=== PATIENT | male | born 2000 | race Caucasian/White ===

== ENCOUNTER 2020-02-08 10:49 | Emergency (ER) | payer BC, SELFPAY ==
[2020-02-08 11:04] VITALS: BP 130/70; PULSE 91; RESP 20; TEMP 36.8; O2SAT 99
--- NOTE | 2020-02-08 11:26 | ED.URI ---
HPI - URI/Sore Throat General Chief Complaint: Upper Respiratory Infection Stated Complaint: Fever Time Seen by Provider: 02/08/20 11:17 Source: patient, family and RN notes reviewed Mode of arrival: ambulatory Limitations: no limitations History of Present Illness HPI Narrative: Patient presents today with a 2-day history of productive cough, chills, body aches, fever up to 101, congestion, rhinorrhea, and intermittent headache. Denies shortness of breath. No history of asthma or COPD. He is a non-smoker. He has been taking cold and flu medicine as well as ibuprofen with mild relief. Denies any known recent contact with COVID positive patient. No recent travel. MD elicited complaint: fever and cough Related Data Home Medications Medication Instructions Recorded Confirmed No Home Medications 02/08/20 02/08/20 Allergies Allergy/AdvReac Type Severity Reaction Status Date / Time No Known Allergies Allergy Verified 02/08/20 11:07 Review of Systems Review of Systems: Narrative: CONSTITUTIONAL: Denies sweats.+ Body aches, fever, chills EYES: Denies visual changes, redness, or discharge. ENT: Denies sore throat, or otalgia.+ Congestion, rhinorrhea CARDIOVASCULAR: Denies chest pain, palpitations, or edema. RESPIRATORY: Denies dyspnea.+ Cough GASTROINTESTINAL: Denies abdominal pain, nausea, vomiting, or diarrhea. GENITOURINARY: Denies dysuria or hematuria. SKIN: Denies rash, itching, or wounds. MUSCULOSKELETAL: Denies back pain, joint pain, or myalgia. NEUROLOGIC: Denies numbness, tingling, or weakness.+ Headache PSYCH: Denies depression or anxiety. PMFSH Social History Social History Gender identity (if verbalized by the patient): Female Comments At time of signature, I have reviewed and agree with nursing past medical, surgical, social and family history unless otherwise noted. Please see nursing chart for further information. There is no relevant family history pertinent to the presenting complaint Exam Narrative: Exam Narrative: GENERAL: Mildly ill-appearing, well-nourished, and in no acute distress. HEAD: Normocephalic, atraumatic. EYES: EOMI. No redness or drainage. Conjunctivae normal. ENT: Mucous membranes pink and moist. Nares congested with rhinorrhea. TMs normal bilaterally. Throat normal. Uvula midline. NECK: Normal AROM. Supple. No lymphadenopathy. CHEST: No respiratory distress. Clear to auscultation. HEART: Regular rate and rhythm. No murmur appreciated. Normal peripheral pulses. EXTREMITIES: Normal range of motion. No edema. SKIN: Warm, dry, no rash. NEURO: No focal deficits. Alert and oriented x3. Gait steady. PSYCH: Normal affect. No signs of depression or anxiety. Course Vital Signs Vital signs: Vital Signs Temperature 98.3 F 02/08/20 11:04 Pulse Rate 91 02/08/20 11:04 Respiratory Rate 20 02/08/20 11:04 Blood Pressure 130/70 02/08/20 11:04 Pulse Oximetry 99 02/08/20 11:04 Temperature 98.3 F 02/08/20 11:04 Pulse Rate 91 02/08/20 11:04 Respiratory Rate 20 02/08/20 11:04 Blood Pressure 130/70 02/08/20 11:04 Pulse Oximetry 99 02/08/20 11:04 Reviewed. Pt has been instructed to follow up with his PCP regarding his elevated blood pressure today. MDM - URI/Sore Throat MDM Narrative Medical decision making narrative: Differential Diagnosis Differential diagnosis: Likely upper respiratory infection, sinusitis, viral infection, bronchitis and influenza Lab Data Attestation: I reviewed the patient's lab results. Labs: Influenza A Screen Negative Reference Range: Negative Influenza B Screen Negative Reference Range: Negative Critical Care Time Critical Care Time Critical Care Time: No Discharge Plan Discharge Clinical Impression: Upper respiratory infection Qualifiers: URI type: unspecified URI Qualified Code(s): J06.9 - Acute upper respiratory infection, unspecified Patient Disposi
== END 2020-02-08 11:34 | disposition home or self-care (01) ==
PROVIDERS: Emergency Provider Nurse Practitioner; PCP Pediatrics
DX: J06.9 Acute upper respiratory infection, unspecified (principal)
CPT/HCPCS: 87804; 99213; G0463

== ENCOUNTER 2020-10-12 10:54 | Emergency (ER) | payer BC, SELFPAY ==
[2020-10-12 11:02] VITALS: BP 126/83; PULSE 106; RESP 20; TEMP 37.8; O2SAT 97
--- NOTE | 2020-10-12 11:21 | ED.URI ---
HPI - URI/Sore Throat General Chief Complaint: Upper Respiratory Infection Stated Complaint: upper respiratory infection Source: patient Mode of arrival: ambulatory Limitations: no limitations History of Present Illness HPI Narrative: Patient is a 20-year-old male who presents complaining of cough, rhinorrhea, body aches, mild nausea and headache starting this a.m. 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 He reports a history of kidney disease from when he was a child, but is unsure what it entails. He is febrile upon arrival, denies taking any [id number] medications at this time. He denies chest pain or shortness of breath. MD elicited complaint: fever and cough Related Data Home Medications Medication Instructions Recorded Confirmed No Home Medications 02/08/20 02/08/20 Allergies Allergy/AdvReac Type Severity Reaction Status Date / Time No Known Allergies Allergy Verified 02/08/20 11:07 Review of Systems Review of Systems: Narrative: CONSTITUTIONAL: Reports fever and body aches EYES: Denies visual changes, reports redness and discharge. ENT: Reports rhinorrhea, denies congestion, sore throat, or otalgia. CARDIOVASCULAR: Denies chest pain, palpitations, or edema. RESPIRATORY: Reports cough, denies dyspnea. GASTROINTESTINAL: Reports mild nausea GENITOURINARY: Denies dysuria or hematuria. SKIN: Denies rash or itching. MUSCULOSKELETAL: Denies back pain, joint pain, or myalgia. NEUROLOGIC: Denies headache, numbness, dizziness, or weakness. PSYCHIATRIC: Denies anxiety or depression. [facility] Past Medical History Medical History (Updated 10/12/20 @ 11:24 by RENO Antonio) Abnormal biopsy of kidney Kidney disease Social History Social History (Updated 10/12/20 @ 11:25 by RENO Antonio) Smoking status: Never smoker Alcohol intake: never Substance use: never Gender identity (if verbalized by the patient): Female Exam Narrative: Exam Narrative: GENERAL: Well-appearing, well-nourished, and in no acute distress. HEAD: Normocephalic, atraumatic. EYES: Sclera injected bilateral eyes, clear drainage noted, conjunctiva erythematous ENT: Mucous membranes pink and moist. Positive rhinorrhea. Throat normal. Uvula midline. NECK: AROM. Supple. No lymphadenopathy. CHEST: No respiratory distress. GI: Soft, nontender without rebound, or guarding. No distention. EXTREMITIES: Normal range of motion. No edema. SKIN: Warm, dry, no rash. NEURO: No focal deficits. Alert and oriented x3. Gait steady. PSYCH: Normal affect. No signs of depression or anxiety. Course Vital Signs Vital signs: Vital Signs Temperature 37.8 C H 10/12/20 11:02 Pulse Rate 106 H 10/12/20 11:02 Respiratory Rate 20 10/12/20 11:02 Blood Pressure 126/83 10/12/20 11:02 Pulse Oximetry 97 10/12/20 11:02 Temperature 37.8 C H 10/12/20 11:02 Pulse Rate 106 H 10/12/20 11:02 Respiratory Rate 20 10/12/20 11:02 Blood Pressure 126/83 10/12/20 11:02 Pulse Oximetry 97 10/12/20 11:02 Reviewed. Patient has been instructed to follow-up with his PCP regarding his blood pressure. MDM - URI/Sore Throat MDM Narrative Medical decision making narrative: Patient's influenza is negative. Discussed with patient Covid testing. Patient requesting Covid testing at this time. Discussed quarantine. Discussed that if he has chest pain or shortness of breath, he should go to the emergency department for further evaluation. Patient is stable for discharge at this time with follow-up as discussed. Differential Diagnosis Differential diagnosis: Likely upper respiratory infection, viral infection, bronchitis, influenza and pharyngitis Lab Data Labs: Influenza A Screen Negative Reference Range: Negative Influenza B Screen Negative
== END 2020-10-12 11:28 | disposition home or self-care (01) ==
PROVIDERS: Emergency Provider Nurse Practitioner
DX: J06.9 Acute upper respiratory infection, unspecified (principal); Z20.828 Contact with and (suspected) exposure to other viral communicable diseases
CPT/HCPCS: 87804; 99213; G0463

== ENCOUNTER 2020-10-15 12:52 | Outpatient (NON) | payer BC, SELFPAY ==
[2020-10-16 01:18] LABS: SARS-CoV-2 RNA PCR Positive
== END 2020-10-15 12:53 ==
LOC: ANHCOVIDDT 12:54
PROVIDERS: Visit Provider Nurse Practitioner
DX: U07.1 COVID-19 (principal)
CPT/HCPCS: 87635; C9803; U0003

== ENCOUNTER 2021-07-31 11:08 | Emergency (ER) | payer BC, SELFPAY ==
[2021-07-31 11:17] VITALS: BP 145/89; PULSE 99; RESP 18; TEMP 36.8; O2SAT 97
--- NOTE | 2021-07-31 11:44 | ED.GENADULT ---
HPI - General Adult General Chief complaint: Upper Respiratory Infection Stated complaint: Sore Throat,Congestion Source: patient Mode of arrival: ambulatory Limitations: no limitations History of Present Illness HPI narrative: Patient is a 21-year-old male who presents to the [facility] via POV for evaluation of a sore throat that began yesterday. Additionally, patient reports throat pain is intermittent and sharp in nature. Denies associated signs and symptoms. Throat pain is alleviated with cough drops and worsens with swallowing. No relief with ibuprofen. Denies known exposure to sick contacts. Patient reports he is fully vaccinated against Covid. Related Data Allergies Allergy/AdvReac Type Severity Reaction Status Date / Time No Known Allergies Allergy Verified 07/31/21 11:15 Review of Systems Review of Systems: Pertinent negatives: fever, sweats, chills, change in appetite, fatigue, skin color changes, headache, nasal congestion/discharge, dizziness, lymphadenopathy, sinus problems, ear pain/drainage, drooling, difficulty swallowing, chest pain, heart murmurs, heart palpitations, shortness of breath, wheezing, cyanosis, hemoptysis, hoarseness, orthopnea, pleuritic pain, nausea, vomiting, diarrhea, and myalgias. [facility] Past Medical History Medical History Abnormal biopsy of kidney Kidney disease Social History Social History Smoking status: Never smoker Alcohol intake: never Substance use: never Gender identity (if verbalized by the patient): Female Comments I have reviewed and agree with the patient's past medical, surgical, social, and family hx as documented by the RN. There is no relevant family history pertinent to the presenting complaint. Exam Narrative: GENERAL: Well-appearing, well-nourished, and in no acute distress. HEAD: Normocephalic, atraumatic. No sinus tenderness or facial swelling appreciated. EYES: PERRLA and EOMI. No evidence of erythema, swelling, or drainage. ENT: Bilateral external ears and ear canals normal. Bilateral TMs are normal.No TM perforation. Nares clear, no rhinorrhea or epistaxis. Bilateral turbinates without erythema/ swelling. Mucous membranes moist and pink. Uvula is midline without erythema and swelling. No evidence of petechial rash, cobblestoning, lesions, ulcers, erythema, swelling, exudates, peritonsillar abscess, tenting, or drooling. Breath odor and voice normal. NECK: Supple. No Lymphadenopathy or nuchal rigidity appreciated. CHEST: Bilateral lung negron are clear to auscultation. No respiratory distress. No evidence of cough or pleuritic cp upon examination. HEART: Regular rate and rhythm. No murmur, gallop, or rub heard. EXTREMITIES: Normal range of motion. No edema. SKIN: Warm, dry, no rash. NEURO: No focal deficits. Alert and oriented x3. Course Vital Signs Vital signs: Vital Signs Temperature 98.2 F 07/31/21 11:17 Pulse Rate 99 07/31/21 11:17 Respiratory Rate 18 07/31/21 11:17 Blood Pressure 145/89 H 07/31/21 11:17 Pulse Oximetry 97 07/31/21 11:17 Temperature 98.2 F 07/31/21 11:17 Pulse Rate 99 07/31/21 11:17 Respiratory Rate 18 07/31/21 11:17 Blood Pressure 145/89 H 07/31/21 11:17 Pulse Oximetry 97 07/31/21 11:17 Due to an elevated blood pressure, I had a detailed discussion with the patient and/or guardian regarding the need for follow-up with their primary care provider within the next 3-4 days. Patient verbalized understanding and agreed. Medical Decision Making Vital Signs Vital Signs: Vital Signs Temperature 98.2 F 07/31/21 11:17 Pulse Rate 99 07/31/21 11:17 Respiratory Rate 18 07/31/21 11:17 Blood Pressure 145/89 H 07/31/21 11:17 Pulse Oximetry 97 07/31/21 11:17 Temperature 98.2 F 07/31/21 11:17 Pulse Rate 99 07/31/21 11:17 Respiratory Rate 18
== END 2021-07-31 11:53 | disposition home or self-care (01) ==
PROVIDERS: Emergency Provider Nurse Practitioner Family
DX: J02.9 Acute pharyngitis, unspecified (principal)
CPT/HCPCS: 87081; 87880; 99213; G0463

== ENCOUNTER 2021-10-15 18:39 | Emergency (ER) | payer BC, SELFPAY ==
[2021-10-15 18:49] VITALS: BP 171/95; PULSE 95; RESP 18; TEMP 36.8; O2SAT 99
--- NOTE | 2021-10-15 19:07 | ED.EAR ---
HPI - Ear Problem General Chief complaint: Ear Stated complaint: bilateral ear pain/congestion Time Seen by Provider: 10/15/21 18:58 Source: patient and RN notes reviewed Mode of arrival: ambulatory Limitations: no limitations History of Present Illness HPI Narrative: Patient presents today with a 2-day history of bilateral ear pain. Reports some clear drainage bilaterally as well. Denies fever, sore throat, or any additional symptoms. Hearing normal. Currently rates pain 5/10 and has been taking ibuprofen with mild relief. No recent antibiotic use. He has been vaccinated against COVID-19. MD Complaint: ear pain Related Data Allergies Allergy/AdvReac Type Severity Reaction Status Date / Time No Known Allergies Allergy Verified 10/15/21 18:43 Review of Systems Review of Systems: CONSTITUTIONAL: Denies body aches, fever, chills, or sweats. EYES: Denies visual changes, redness, or discharge. ENT: Denies rhinorrhea, congestion, sore throat. + Ear pain CARDIOVASCULAR: Denies chest pain, palpitations, or edema. RESPIRATORY: Denies cough or dyspnea. GASTROINTESTINAL: Denies abdominal pain, nausea, vomiting, or diarrhea. GENITOURINARY: Denies dysuria or hematuria. SKIN: Denies rash, itching, or wounds. MUSCULOSKELETAL: Denies back pain, joint pain, or myalgia. NEUROLOGIC: Denies headache, numbness, tingling, or weakness. PSYCH: Denies depression or anxiety. PMFSH Past Medical History Medical History (Reviewed 10/15/21 @ 19:09 by Jamilah Lima, [facility], ) Abnormal biopsy of kidney Kidney disease Social History Social History (Reviewed 10/15/21 @ 19:09 by Jamilah Lima, [facility], ) Smoking status: Never smoker Alcohol intake: never Substance use: never Gender identity (if verbalized by the patient): Female Comments At time of signature, I have reviewed and agree with nursing past medical, surgical, social and family history unless otherwise noted. Please see nursing chart for further information. There is no relevant family history pertinent to the presenting complaint Exam Narrative: GENERAL: Well-appearing, well-nourished, and in no acute distress. HEAD: Normocephalic, atraumatic. EYES: EOMI. No redness or drainage. Conjunctivae normal. ENT: Mucous membranes pink and moist. Nares clear. No rhinorrhea. Bilateral injected TMs, right greater than left. Throat normal. Uvula midline. NECK: Normal AROM. Supple. No lymphadenopathy. CHEST: No respiratory distress. EXTREMITIES: Normal range of motion. No edema. SKIN: Warm, dry, no rash. Capillary refill normal. Normal skin turgor. NEURO: No focal deficits. Alert and oriented x3. Gait steady. PSYCH: Normal affect. No signs of depression or anxiety. Course Vital Signs Vital signs: Vital Signs Temperature 98.3 F 10/15/21 18:49 Pulse Rate 95 10/15/21 18:49 Respiratory Rate 18 10/15/21 18:49 Blood Pressure 171/95 H 10/15/21 18:49 Pulse Oximetry 99 10/15/21 18:49 Temperature 98.3 F 10/15/21 18:49 Pulse Rate 95 10/15/21 18:49 Respiratory Rate 18 10/15/21 18:49 Blood Pressure 171/95 H 10/15/21 18:49 Pulse Oximetry 99 10/15/21 18:49 Reviewed. Pt has been instructed to follow up with his PCP regarding his elevated blood pressure today. Medical Decision Making Differential Diagnosis Differential Diagnosis: Otitis media, otitis externa, ruptured TM, serous otitis, eustachian tube dysfunction, cerumen impaction Vital Signs Vital Signs: Vital Signs Temperature 98.3 F 10/15/21 18:49 Pulse Rate 95 10/15/21 18:49 Respiratory Rate 18 10/15/21 18:49 Blood Pressure 171/95 H 10/15/21 18:49 Pulse Oximetry 99 10/15/21 18:49 Temperature 98.3 F 10/15/21 18:49 Pulse Rate 95 10/15/21 18:49 Respiratory Rate 18 10/15/21 18:49 Blood Pressure 171/95 H 10/15/21 18:49 Pulse Oximetry 99 10/15/21 18:49 Critical Care Time Critical Care Time Critical Care Time: No Discharge Plan Discharge
== END 2021-10-15 19:22 | disposition home or self-care (01) ==
PROVIDERS: Emergency Provider Nurse Practitioner
DX: H66.003 Acute suppurative otitis media without spontaneous rupture of ear drum, bilateral (principal)
CPT/HCPCS: 99213; G0463

== ENCOUNTER 2022-03-10 12:04 | Emergency (ER) | payer BC, SELFPAY ==
[2022-03-10 12:37] VITALS: BP 152/105; PULSE 101; RESP 18; TEMP 36.6; O2SAT 98
--- NOTE | 2022-03-10 12:41 | ED.URI ---
HPI - URI/Sore Throat General Chief Complaint: Upper Respiratory Infection Stated Complaint: nasal congestion,cough,bodyache Time Seen by Provider: 03/10/22 12:41 Source: patient and RN notes reviewed Mode of arrival: ambulatory Limitations: no limitations History of Present Illness HPI Narrative: 22-year-old male presents with concern for 5-day history of cough, nasal congestion, rhinorrhea, body aches, sneezing, fever. Reports cough became more persistent today. He reports he has not taken Mucinex Tylenol. He denies any known sick contacts. Reports has been vaccinated for COVID. He denies shortness of breath, nausea, vomiting, diarrhea. MD elicited complaint: cough and nasal congestion Related Data Allergies Allergy/AdvReac Type Severity Reaction Status Date / Time No Known Allergies Allergy Verified 03/10/22 13:00 Review of Systems Review of Systems: CONSTITUTIONAL: Denies malaise, chills, sweats. Reports fever. EYES: Denies visual changes, redness, or discharge. ENT: Reports rhinorrhea, congestion, sore throat. Denies sinus pain, otalgia CARDIOVASCULAR: Denies chest pain, palpitations, or edema. RESPIRATORY: Reports cough. Denies dyspnea. GASTROINTESTINAL: Denies abdominal pain, nausea, vomiting, diarrhea SKIN: Denies rash or itching. MUSCULOSKELETAL: Reports myalgia. NEUROLOGIC: Denies headache. All systems reviewed & are unremarkable except as noted in HPI and below PMFSH Past Medical History Medical History Abnormal biopsy of kidney Kidney disease Social History Social History Smoking status: Never smoker Alcohol intake: never Substance use: never Gender identity (if verbalized by the patient): Female Comments At time of signature, agree with nursing past medical, surgical, social and family history. There is no relevant family history pertinent to the presenting complaint Exam Narrative: GENERAL: Nontoxic appearing and in no acute distress. HEAD: Normocephalic EYES: PERRLA, conjunctivae clear ENT: Nares clear, turbinates edematous and erythematous, clear discharge. Mucous membranes moist. TM pearly jolley with dull light reflex bilaterally; no tragal tenderness. Oropharynx not erythematous without lesions. Tonsils not enlarged and without exudate, no drooling, no hoarseness, no trismus, uvula midline. NECK: Supple. No lymphadenopathy CHEST: Clear to auscultation, breath sounds equal. No wheezing, rhonchi, rales, or stridor. No respiratory distress, speaks in full sentences. HEART: Regular rate and rhythm. No murmur heard. SKIN: Warm, dry, no rash. NEURO: Alert and oriented x3. PSYCH: Normal mood and affect Course Course Emergency Course: Patient is aware of diagnosis, understands and agrees to treatment plan. Anticipatory guidance given. Patient agrees to follow-up as directed and is aware of reasons to seek care at the emergency department. Portions of this record may have been created with voice recognition software Level of Care: Express Care Visit Vital Signs Vital signs: Vital Signs Temperature 97.8 F 03/10/22 12:37 Pulse Rate 101 H 03/10/22 12:37 Respiratory Rate 18 03/10/22 12:37 Blood Pressure 152/105 H 03/10/22 12:37 Pulse Oximetry 98 03/10/22 12:37 Temperature 97.8 F 03/10/22 12:37 Pulse Rate 101 H 03/10/22 12:37 Respiratory Rate 18 03/10/22 12:37 Blood Pressure 152/105 H 03/10/22 12:37 Pulse Oximetry 98 03/10/22 12:37 Reviewed. Pt has been instructed to follow up with his primary care provider within the next week regarding his elevated blood pressure today. MDM - URI/Sore Throat MDM Narrative Medical decision making narrative: Differential diagnosis considered: Mahan virus, strep pharyngitis, allergic rhinitis, upper respiratory tract infection, sinusitis, rhinosinusitis, nasopharyngitis. viral pharyngitis, otitis media, otitis
== END 2022-03-10 13:15 | disposition home or self-care (01) ==
PROVIDERS: Emergency Provider Nurse Practitioner
DX: J06.9 Acute upper respiratory infection, unspecified (principal)
CPT/HCPCS: 87426; 87804; 99213; C9803; G0463

== ENCOUNTER 2024-02-23 20:27 | Observation (INO) | payer SELFPAY ==
--- NOTE | ~2024-02-23 | XR_ITS ---
EXAM: XR tibia fibula RT 2V DATE: 02/23/2024 21:23 HISTORY: edema, erythema . COMPARISON: None available. FINDINGS: Normal mineralization. No fracture or dislocation. No lytic or blastic lesion. Mild degene rative change at the knee and ankle. Old medial malleolus fracture fragments. No erosion or periostea l change. Soft tissues within normal limits. No unexpected radiopaque foreign body or subcutaneous ga s. IMPRESSION: No acute osseous finding in the right tibia/fibula. Reviewed, dictated and finalized at location K.
[2024-02-23 20:28] VITALS: BP 138/73; PULSE 122; RESP 20; TEMP 37; O2SAT 99
--- NOTE | 2024-02-23 21:02 | ED.LOWEXIN ---
HPI - Extremity Injury (Lower) General Chief Complaint: Extremity Injury, Lower <Saniya Cruz PA-C - Last Filed: 02/24/24 01:04> Stated Complaint: leg pain and redness <MICH Doherty Last Filed: 02/24/24 01:04> Time Seen by Provider: 02/23/24 20:57 <Saniya Cruz PA-C - Last Filed: 02/24/24 01:04> Source: patient <MICH Doherty Last Filed: 02/24/24 01:04> Mode of arrival: ambulatory <MICH Doherty Last Filed: 02/24/24 01:04> Limitations: no limitations <MICH Doherty Last Filed: 02/24/24 01:04> History of Present Illness HPI Narrative: This is a 24 year old male that presents to the ER for right lower extremity pain. Reports this morning he woke up with chills. Has had pain in the right lower leg. Noted swelling and redness which prompted him to be seen. Denies fevers. <Saniya Cruz PA-C - Last Filed: 02/24/24 01:04> Related Data Allergies/Adverse Reactions: Allergies Allergy/AdvReac Type Severity Reaction Status Date / Time No Known Allergies Allergy Verified 02/23/24 20:35 <MICH Doherty Last Filed: 02/24/24 01:04> [facility] Past Medical History Medical History: Medical History (Updated 02/24/24 @ 03:47 by Karla Wharton APRN) Abnormal biopsy of kidney Kidney disease <MICH Doherty Last Filed: 02/24/24 01:04> Social History Social History: Social History Smoking status: Never smoker Alcohol intake: never Substance use: never Gender identity (if verbalized by the patient): Female <MICH Doherty Last Filed: 02/24/24 01:04> Course Course Emergency Course: Patient updated on workup and recommendation for admission <Saniya Cruz PA-C - Last Filed: 02/24/24 01:04> [employer] REPAIRER/PA Physician Supervision For this patient encounter, I reviewed the WHEEL AND CASTER REPAIRER or PA documentation, treatment plan, and medical decision making and had [id number] time with this patient. I performed all aspects of the MDM as documented. <Gabriele Dominguez MD - Last Filed: 02/24/24 04:08> Consultations Consultation #1: Spoke with hospitalist about patient and workup who accepts admission <Saniya Cruz PA-C - Last Filed: 02/24/24 01:04> Date: 02/24/24 <Saniya Cruz PA-C - Last Filed: 02/24/24 01:04> Vital Signs Vital signs: Vital Signs Temperature 98.6 F 02/23/24 20:28 Pulse Rate 122 H 02/23/24 20:28 Respiratory Rate 20 02/23/24 20:28 Blood Pressure 138/73 02/23/24 20:28 Pulse Oximetry 99 02/23/24 20:28 Oxygen Delivery Room Air 02/23/24 20:28 Temperature 98.6 F 02/23/24 20:28 Pulse Rate 114 H 02/24/24 03:59 Respiratory Rate 16 02/24/24 03:59 Blood Pressure 166/72 H 02/24/24 03:59 Pulse Oximetry 98 02/24/24 03:59 Oxygen Delivery Room Air 02/23/24 20:28 <Saniya Cruz PA-C - Last Filed: 02/24/24 01:04> Vital Signs Temperature 98.6 F 02/23/24 20:28 Pulse Rate 122 H 02/23/24 20:28 Respiratory Rate 20 02/23/24 20:28 Blood Pressure 138/73 02/23/24 20:28 Pulse Oximetry 99 02/23/24 20:28 Oxygen Delivery Room Air 02/23/24 20:28 Temperature 98.6 F 02/23/24 20:28 Pulse Rate 114 H 02/24/24 03:59 Respiratory Rate 16 02/24/24 03:59 Blood Pressure 166/72 H 02/24/24 03:59 Pulse Oximetry 98 02/24/24 03:59 Oxygen Delivery Room Air 02/23/24 20:28 <Gabriele Dominguez MD - Last Filed: 02/24/24 04:08> MDM - Extremity Injury (Lower) MDM Narrative Medical decision making narrative: Patient presents to the ER for right lower extremity pain, swelling and redness. He is afebrile in the ED. Tachycardic upon arrival. This did respond to IV fluids. CBC with leukocytosis to 21.3. Metabolic panel with elevation of creatinine to 1.7. I do not have any recent labs to compare this to. He does report history of kidney disease a
[2024-02-23] MEDS: ACETAMINOPHEN 500 MG TABLET 1000 MG PO (21:07)
[2024-02-23 21:55] LABS: Basophils Absolute Auto 0.1 K/mm3 (0.0-0.1); Basophils Percent Auto 0.3 % (0.2-1.2); Eosinophils Absolute Auto 0.1 K/mm3 (0-0.3); Eosinophils Percent Auto 0.2 % (0-4.4); Hematocrit 47.6 % (42.0-52.0); Hemoglobin 14.8 g/dL (14.0-18.0); Immature Granulocyte Absolute 0.18 K/mm3 (0.00-0.031); Immature Granulocyte Percent A 0.8 % (0-0.5); Lymphocytes Absolute Auto 1.91 K/mm3 (0.9-3.2); Mean Corpuscular HGB Conc 31.1 g/dl (32-36); Mean Corpuscular Volume 86.7 fl (80-100); Mean Platelet Volume 10.1 fl (7.4-10.4); Monocytes Absolute Auto 0.6 K/mm3 (0.1-0.6); Monocytes Percent Auto 2.8 % (2.6-8.5); Neutrophils Absolute Auto 18.5 K/mm3 (1.3-6.7); Neutrophils Percent Auto 86.9 % (45.5-73.1); Platelet Count Result 245 k/mm3 (150-375); Red Blood Count 5.49 M/mm3 (4.6-6.20); Red Cell Distribution Width 13.1 % (11.5-14.5); White Blood Count 21.3 K/mm3 (4.5-10.0)
[2024-02-23 22:07] LABS: INR 1.1; Prothrombin Time 14.2 Seconds (11.1-14.7)
[2024-02-23 22:08] LABS: Partial Thromboplastin Time 27.7 Seconds (22.3-36.8)
[2024-02-23 22:14] LABS: Anion Gap 9 mmol/L (4-12); Blood Urea Nitrogen 25 mg/dL (9-20); Calcium 8.7 mg/dL (8.4-10.2); Carbon Dioxide 28 mmol/L (22-30); Chloride 101 mmol/L (98-107); Estimated CRCL calculation 93 ml/min; Estimated Glomerular Filt Rate 50; Glucose 108 mg/dL (65-110); Potassium 3.6 mmol/L (3.4-5.0); Sodium 138 mmol/L (137-145)
[2024-02-23 22:24] LABS: Erythrocyte Sedimentation Rate 13 mm/hr (0-20)
[2024-02-23 22:29] LABS: D Dimer 0.33 ug/mL (<0.48)
[2024-02-23] MEDS: SODIUM CHLORIDE 0.9% IV 1,000 ML 999 ML IV CONT (22:31)
[2024-02-23 23:09] LABS: CRP 22.5 mg/dL (<1.0)
[2024-02-23 23:58] LABS: Lactic Acid Reflex 1.2 mmol/L (0.7-2.0)
[2024-02-24] VITALS (14 sets, daily range): BP systolic 124–168; BP diastolic 59–88; PULSE 98–124; RESP 15–20; TEMP 37.1–39.1; O2SAT 97–98; BMI 52.6; BMI 48.2
[2024-02-24] MEDS: ceFAZolin 1 GM/NS 50 ML 1 GM/50 ML BAG IVPB ×3 (00:07→15:13)
[2024-02-24] MEDS: SODIUM CHLORIDE 0.9% IV 1,000 ML 999 ML IV CONT (00:40)
--- NOTE | 2024-02-24 01:51 | PM.IMHP ---
H&P: HPI History of Present Illness Date/Time: 02/24/24 01:51 Chief Complaint: RLE Redness/Pain Narrative: 24 y/o M presents here with redness/pain to RLE and difficulty with ambulation with PMH of kidney disease. Patient presented here for further evaluation of right lower extremity pain and redness. Reports that he initially noticed chills, body aches, and redness to his lower extremity today (02/22). Initially had chills throughout the whole day but then woke around 7 pm and then noticed the redness. Currently denying fever. Experiencing some associated pain to whole RLE that is exacerbated by ambulating. No recent long car rides or flights. No recent surgeries. No current or former IVDU. Not currently playing any sports or attending college. 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 Denies any recent injuries or cuts/wounds/abrasions prior to symptom onset. Has hx of kidney disease, unsure what it was called but states he was diagnosed through a biopsy of his kidneys when he was 12, and that the term was long so his mom had to use an acronym. Not able to provide any further information. Initial VS at presentation: 98.6? F, HR 122, RR 20, 138/73, and 99% on RA. ED workup showed: WBC 21.3, no anemia, creatinine 1.7 (no previous available for comparison) with a GFR 50, and CRP 22.5. XR of the right tib-fib showed no acute osseous findings. Review of Systems Review of Systems: All systems reviewed & are unremarkable except as noted in HPI and below PMFSH Past Medical History Medical History (Updated 02/24/24 @ 03:47 by Karla Wharton, B[employer]) Abnormal biopsy of kidney Kidney disease Social History Social History Smoking status: Never smoker Alcohol intake: never Substance use: never Gender identity (if verbalized by the patient): Female Meds Home Medications and Allergies Home Medications Medication Instructions Recorded Confirmed Type codeine 10 mg-guaifenesin 100 mg/5 5 ml PO Q6H PRN cough #120 mL 03/10/22 Rx mL oral liquid (Virtussin AC) methylprednisolone 4 mg tablets in See Rx Instructions PO .COMPLEX 03/10/22 Rx a dose pack (Medrol (Issac)) #21 ea Allergies Allergy/AdvReac Type Severity Reaction Status Date / Time No Known Allergies Allergy Verified 02/23/24 20:35 Vital Signs Vital Signs - 24 hr 02/23/24 20:28 02/24/24 00:04 Temperature 98.6 F Pulse Rate 122 H 102 H Respiratory Rate 20 18 Blood Pressure 138/73 140/77 Pulse Oximetry 99 98 Oxygen Delivery Room Air Exam Const: General: comfortable and no acute distress Other: , male, nontoxic appearance HENMT: Face/Nose/Sinus: Normal nares present Mouth: Yes moist mucous membranes Eyes: General: appearance normal, both eyes and all related structures Sclera: sclerae normal Pupils: Equal, round and reactive pupils present EOM: EOMs intact bilaterally Resp: Effort & Inspection: normal respiratory effort Auscultation: clear to auscultation bilaterally Cardio: Rate: regular rate Rhythm: regular rhythm Other: S1-S2 present without murmur, rub, ectopy Skin: General skin exam: normal color and erythema Other: Patient with somewhat well-demarcated erythema to his anterior calf with linear demarcation line near ankle, extending up calf just proximal to knee and medially. No open wounds, no abrasions, no drainage. No excessive heat when compared to other extremity. Neuro: General: gait normal Speech: normal speech Motor exam (neuro): 5/5 motor strength present throughout Sensory Exam: normal sensation Other: A&O x4 Extrem: Other: No edema or asymmetry, see skin exam. Psych: Mental Status: mental status grossly normal Affect: Sad affect present Other: Good insight and judgment, pleasant H&P: Results Labs Labs: Short CBC 02/23/24 Range/Units 21:44 WBC 21.3 H (4.5-10.0) K/mm3 Hgb 14.8 (1
[2024-02-24] MEDS: VANCOMYCIN 1,500 MG/NS 500 ML 1,500 MG/500 ML BAG 250 MG IVPB (01:55)
--- NOTE | 2024-02-24 04:34 | ADMGEN ---
This patient, Kenney Zapata, was admitted to 3 [facility] Surg Room 302-01 at 0425. Patient/family oriented to hospital policies and general routines including ID bracelet, bed and alarms, visiting hours, pain management, procedures, bathroom and other care routines, personal items, smoking policy, room service/diet, and visiting hours. Information on how to activate the Rapid Response Team has been discussed. Patient/Family are encouraged to report perceived risks to care and to ask questions if they do not understand what they are told or what they should do.
[2024-02-24] MEDS: ACETAMINOPHEN 500 MG TABLET 1000 MG PO ×3 (04:56→18:03)
[2024-02-24] MEDS: LACTATED RINGERS 1,000 ML 100 ML IV CONT (05:01)
[2024-02-24 07:03] LABS: Appearance Urine Clear (Clear); Bacteria Urine None Seen /hpf; Bilirubin Urine Negative (Negative); Blood Urine Negative (Negative); Color Urine Dark Yellow (Yellow); Glucose Urine UA Negative (Negative); Ketones Urine Trace mg/dL (Negative); Leukocyte Esterase Ur Negative LEU/UL (Negative); Mucus Urine Present /lpf; Nitrate Urine Negative (Negative); Protein Urine 3+ mg/dL (Negative); RBC Urine 0-2 /hpf (0-2); Specific Grav Ur 1.036 (1.001-1.035); Squamous Epithelial Cell Urine Occasional /hpf (Few); Urobilinogen Urine 0.2 mg/dL (<2.0); WBC Urine 0-5 /hpf (0-3); pH Urine 5.5 (5.0-9.0)
[2024-02-24 07:04] LABS: Add Urine Microscopic? YES
[2024-02-24 07:07] LABS: Basophils Absolute Auto 0.1 K/mm3 (0.0-0.1); Basophils Percent Auto 0.3 % (0.2-1.2); Hematocrit 40.4 % (42.0-52.0); Hemoglobin 12.4 g/dL (14.0-18.0); Immature Granulocyte Absolute 0.15 K/mm3 (0.00-0.031); Immature Granulocyte Percent A 0.9 % (0-0.5); Lymphocytes Absolute Auto 1.03 K/mm3 (0.9-3.2); Lymphocytes Percent Auto 6.5 % (18.3-44.2); Mean Corpuscular HGB Conc 30.7 g/dl (32-36); Mean Corpuscular Hemoglobin 27.1 pg (26-34); Mean Corpuscular Volume 88.4 fl (80-100); Mean Platelet Volume 10.9 fl (7.4-10.4); Monocytes Absolute Auto 0.8 K/mm3 (0.1-0.6); Monocytes Percent Auto 4.8 % (2.6-8.5); Neutrophils Percent Auto 87.5 % (45.5-73.1); Platelet Count Result 215 k/mm3 (150-375); Red Blood Count 4.57 M/mm3 (4.6-6.20); Red Cell Distribution Width 13.2 % (11.5-14.5)
[2024-02-24 07:17] LABS: Alanine Aminotransferase 35 U/L (6-50); Albumin Level 3.5 g/dL (3.5-5.1); Alkaline Phosphatase 59 U/L (38-126); Anion Gap 7 mmol/L (4-12); Aspartate Amino Transferase 30 U/L (17-59); Bilirubin,Total 0.6 mg/dL (0.2-1.3); Blood Urea Nitrogen 26 mg/dL (9-20); Calcium 7.5 mg/dL (8.4-10.2); Carbon Dioxide 20 mmol/L (22-30); Chloride 107 mmol/L (98-107); Estimated CRCL calculation 112 ml/min; Estimated Glomerular Filt Rate > 60; Glucose 106 mg/dL (65-110); Potassium 3.3 mmol/L (3.4-5.0); Sodium 134 mmol/L (137-145)
[2024-02-24] MEDS: ENOXAPARIN 40 MG/0.4 ML SYRINGE SUB-Q (09:04)
--- NOTE | 2024-02-24 14:07 | PM.IMPN ---
Progress Note: A&P Assessment and Plan (1) Sepsis: Code(s): A41.9 - Sepsis, unspecified organism Status: Acute Assessment and Plan: wcc coming down from 16 to 11 - suspected source: RLE cellulitis - started on vancomycin and Ancef on 02/23 mrsa negative DC vancomycin - blood cultures drawn on 02/23 - UA ordered (2) Cellulitis of right lower extremity: Code(s): L03.115 - Cellulitis of right lower limb Status: Acute Assessment and Plan: - XR tibia/fibula, right: no acute osseous finding in the right tibia/fibula - supportive care Tylenol p.r.n. IV fluids - trend labs (3) Kidney disease: Code(s): N28.9 - Disorder of kidney and ureter, unspecified Status: Acute Assessment and Plan: - creatinine 1.7 -creat is 1.4 now can dc fluids encourage oral fluids Subjective Date/time seen: 02/24/24 14:07 Interval history: 24 y/o M presents here with redness/pain to RLE and difficulty with ambulation with PMH of kidney disease. Patient presented here for further evaluation of right lower extremity pain and redness. Pt admitted for sepsis and leg cellulitis Review of Systems Review of Systems: low grade fevers and leg redness Exam Const: General: comfortable and no acute distress Other: , male, nontoxic appearance HENMT: Face/Nose/Sinus: Normal nares present Mouth: Yes moist mucous membranes Eyes: General: appearance normal, both eyes and all related structures Sclera: sclerae normal Pupils: Equal, round and reactive pupils present EOM: EOMs intact bilaterally Resp: Effort & Inspection: normal respiratory effort Auscultation: clear to auscultation bilaterally Cardio: Rate: regular rate Rhythm: regular rhythm Other: S1-S2 present without murmur, rub, ectopy Skin: General skin exam: normal color and erythema Other: Patient with somewhat well-demarcated erythema to his anterior calf with linear demarcation line near ankle, extending up calf just proximal to knee and medially. No open wounds, no abrasions, no drainage. No excessive heat when compared to other extremity. Neuro: General: gait normal Cranial nerves: Yes Equal, round and reactive pupils present Speech: normal speech Motor exam (neuro): 5/5 motor strength present throughout Sensory Exam: normal sensation Other: A&O x4 Extrem: Other: No edema or asymmetry, see skin exam. Psych: Mental Status: mental status grossly normal Affect: Sad affect present Other: Good insight and judgment, pleasant Objective Data Vital Signs Vital Signs: Vital Signs - 24 hr 02/23/24 20:28 02/24/24 00:04 02/24/24 02:38 Temperature 37.0 C Pulse Rate 122 H 102 H 98 Respiratory Rate 20 18 15 Blood Pressure 138/73 140/77 168/88 H Pulse Oximetry 99 98 97 Oxygen Delivery Room Air 02/24/24 03:59 02/24/24 04:56 02/24/24 04:03 Temperature 38.9 C H 38.9 C H Pulse Rate 114 H 124 H Respiratory Rate 16 20 Blood Pressure 166/72 H 155/77 H Pulse Oximetry 98 97 Oxygen Delivery 02/24/24 06:28 02/24/24 05:56 02/24/24 04:45 Temperature 37.9 C H 38.1 C H Pulse Rate Respiratory Rate Blood Pressure Pulse Oximetry Oxygen Delivery Room Air 02/24/24 10:58 02/24/24 10:59 02/24/24 11:51 Temperature 38.2 C H 38.2 C H 37.2 C Pulse Rate Respiratory Rate Blood Pressure Pulse Oximetry Oxygen Delivery 02/24/24 13:49 Temperature 37.1 C Pulse Rate 104 H Respiratory Rate 18 Blood Pressure 151/75 H Pulse Oximetry 97 Oxygen Delivery Intake/Output Intake/Output: Intake & Output 02/21/24 02/22/24 02/23/24 02/24/24 23:59 23:59 23:59 23:59 Intake Total 1000 2060 Output Total 250 Balance 1000 1810 Meds/Results Medications: Active Medications Generic Name Dose Route Start Last Admin Trade Name Freq PRN Reason Stop Dose Admin Acetaminophen 1,000 mg 02/24/24 02:02 0
[2024-02-24] MEDS: ONDANSETRON HCL ODT 4 MG TABLET PO (18:54)
[2024-02-24] MEDS: amLODIPine BESYLATE 5 MG TABLET PO (18:54)
[2024-02-25] VITALS (14 sets, daily range): BP systolic 142–151; BP diastolic 72–91; PULSE 95–102; RESP 18–20; TEMP 37.1–39.3; O2SAT 98–99
[2024-02-25] MEDS: ceFAZolin 1 GM/NS 50 ML 1 GM/50 ML BAG IVPB ×3 (00:54→15:36)
[2024-02-25] MEDS: ACETAMINOPHEN 500 MG TABLET 1000 MG PO ×4 (00:55→20:40)
[2024-02-25 06:53] LABS: Anion Gap 2 mmol/L (4-12); Blood Urea Nitrogen 10 mg/dL (9-20); Carbon Dioxide 27 mmol/L (22-30); Chloride 107 mmol/L (98-107); Estimated CRCL calculation 189 ml/min; Estimated Glomerular Filt Rate > 60; Glucose 103 mg/dL (65-110); Potassium 3.5 mmol/L (3.4-5.0); Sodium 136 mmol/L (137-145)
[2024-02-25] MEDS: POTASSIUM CHLORIDE 20 MEQ PACKET (FOR LIQUID) 40 MEQ PO (07:59)
[2024-02-25] MEDS: ENOXAPARIN 40 MG/0.4 ML SYRINGE SUB-Q (08:00)
[2024-02-25] MEDS: amLODIPine BESYLATE 5 MG TABLET PO (08:00)
--- NOTE | 2024-02-25 12:36 | PM.IMPN ---
Progress Note: A&P Assessment and Plan (1) Sepsis: Code(s): A41.9 - Sepsis, unspecified organism Status: Acute Assessment and Plan: wcc coming down from 16 to 11 - suspected source: RLE cellulitis - started on vancomycin and Ancef on 02/23 mrsa negative DC vancomycin - blood cultures drawn on 02/23 - UA ordered (2) Cellulitis of right lower extremity: Code(s): L03.115 - Cellulitis of right lower limb Status: Acute Assessment and Plan: - XR tibia/fibula, right: no acute osseous finding in the right tibia/fibula - supportive care Tylenol p.r.n. - trend labs (3) Kidney disease: Code(s): N28.9 - Disorder of kidney and ureter, unspecified Status: Acute Assessment and Plan: -creatinine 1.7 -creat is 0.8 today -can dc fluids encourage oral fluids Plan Elevated Blood pressures ? start of HTN increase norvasc Subjective Date/time seen: 02/25/24 12:36 Interval history: 24 y/o M presents here with redness/pain to RLE and difficulty with ambulation with PMH of kidney disease. Patient presented here for further evaluation of right lower extremity pain and redness. 02/23/2024 Pt admitted for sepsis and leg cellulitis 02/25/2024 [facility] improving redness improving pts blood pressure running high and still having low grade fevers Review of Systems Review of Systems: redness improving slowly ongoing low grade fevers Exam Const: General: comfortable and no acute distress Other: , male, nontoxic appearance HENMT: Face/Nose/Sinus: Normal nares present Mouth: Yes moist mucous membranes Eyes: General: appearance normal, both eyes and all related structures Sclera: sclerae normal Pupils: Equal, round and reactive pupils present EOM: EOMs intact bilaterally Resp: Effort & Inspection: normal respiratory effort Auscultation: clear to auscultation bilaterally Cardio: Rate: regular rate Rhythm: regular rhythm Other: S1-S2 present without murmur, rub, ectopy Skin: General skin exam: normal color and erythema Other: Patient with somewhat well-demarcated erythema to his anterior calf with linear demarcation line near ankle, extending up calf just proximal to knee and medially. No open wounds, no abrasions, no drainage. No excessive heat when compared to other extremity. Neuro: General: gait normal Cranial nerves: Yes Equal, round and reactive pupils present Speech: normal speech Motor exam (neuro): 5/5 motor strength present throughout Sensory Exam: normal sensation Other: A&O x4 Extrem: Other: No edema or asymmetry, see skin exam. Psych: Mental Status: mental status grossly normal Affect: Sad affect present Other: Good insight and judgment, pleasant Objective Data Vital Signs Vital Signs: Vital Signs - 24 hr 02/24/24 13:49 02/24/24 18:03 02/24/24 18:57 Temperature 37.1 C 39.1 C H 37.6 C Pulse Rate 104 H Respiratory Rate 18 Blood Pressure 151/75 H Pulse Oximetry 97 Oxygen Delivery 02/24/24 22:00 02/25/24 00:40 02/25/24 00:55 Temperature 38.8 C H 39.3 C H 39.3 C H Pulse Rate 100 Respiratory Rate 20 Blood Pressure 124/59 L Pulse Oximetry 98 Oxygen Delivery 02/24/24 20:00 02/25/24 01:55 02/25/24 06:00 Temperature 38.1 C H 37.4 C Pulse Rate 95 Respiratory Rate 20 Blood Pressure 142/83 H Pulse Oximetry 98 Oxygen Delivery Room Air 02/25/24 06:50 02/25/24 07:50 02/25/24 11:50 Temperature 37.8 C H 37.5 C 37.1 C Pulse Rate Respiratory Rate Blood Pressure Pulse Oximetry Oxygen Delivery Intake/Output Intake/Output: Intake & Output 02/22/24 02/23/24 02/24/24 02/25/24 23:59 23:59 23:59 23:59 Intake Total 1000 2590 1180 Output Total 250 Balance 1000 2340 1180 Meds/Results Medications: Active Medications Generic Name Dose Route Start Last Admin Trade Name Freq PRN Reason Stop Dose Admin
[2024-02-26] MEDS: ceFAZolin 1 GM/NS 50 ML 1 GM/50 ML BAG IVPB ×2 (00:04→09:28)
[2024-02-26 05:34] VITALS: BP 145/80; PULSE 88; RESP 18; TEMP 35.9; O2SAT 98
[2024-02-26 07:45] LABS: Hematocrit 38.5 % (42.0-52.0); Hemoglobin 11.8 g/dL (14.0-18.0); Mean Corpuscular HGB Conc 30.6 g/dl (32-36); Mean Corpuscular Hemoglobin 26.8 pg (26-34); Mean Corpuscular Volume 87.5 fl (80-100); Platelet Count Result 216 k/mm3 (150-375); Red Cell Distribution Width 13.1 % (11.5-14.5); White Blood Count 9.4 K/mm3 (4.5-10.0)
[2024-02-26 07:50] LABS: Anion Gap 5 mmol/L (4-12); Blood Urea Nitrogen 12 mg/dL (9-20); Carbon Dioxide 27 mmol/L (22-30); Chloride 105 mmol/L (98-107); Estimated CRCL calculation 214 ml/min; Estimated Glomerular Filt Rate > 60; Glucose 94 mg/dL (65-110); Potassium 3.6 mmol/L (3.4-5.0); Sodium 137 mmol/L (137-145)
[2024-02-26] MEDS: amLODIPine BESYLATE 5 MG TABLET 10 MG PO (09:29)
[2024-02-26] MEDS: POTASSIUM CHLORIDE 20 MEQ PACKET (FOR LIQUID) 40 MEQ PO (09:29)
[2024-02-26] MEDS: ENOXAPARIN 40 MG/0.4 ML SYRINGE SUB-Q (09:30)
[2024-02-26] MEDS: CEPHALEXIN 500 MG CAPSULE PO ×4 (09:33→23:16)
--- NOTE | 2024-02-26 12:35 | PM.IMPN ---
Progress Note: A&P Assessment and Plan (1) Sepsis: Code(s): A41.9 - Sepsis, unspecified organism Status: Acute Assessment and Plan: 02/25/24: wcc coming down from 16 to 11 - suspected source: RLE cellulitis - started on vancomycin and Ancef on 02/23 mrsa negative DC vancomycin - blood cultures drawn on 02/23 - UA ordered 02/26/24: White blood cell count down to 9.4 Right lower extremity cellulitis Ancef switch to Keflex today Blood culture showing no growth on preliminary read UA showed 3+ protein, trace ketones, otherwise normal (2) Cellulitis of right lower extremity: Code(s): L03.115 - Cellulitis of right lower limb Status: Acute Assessment and Plan: 02/25/24: - XR tibia/fibula, right: no acute osseous finding in the right tibia/fibula - supportive care Tylenol p.r.n. - trend labs 02/26/24: Continue Keflex See above plan of care (3) Kidney disease: Code(s): N28.9 - Disorder of kidney and ureter, unspecified Status: Acute Assessment and Plan: 01/25/24: -creatinine 1.7 -creat is 0.8 today -can dc fluids encourage oral fluids 01/26/24: Creatinine down to 0.7 Continue to trend (4) Hypertension: Code(s): I10 - Essential (primary) hypertension Status: Acute Assessment and Plan: 02/26/24: ? New onset hypertension, denies history, not on any home medication Blood pressure ranging 145/72 to 151/91 Patient started amlodipine 10mg daily Time Spent With Patient Time with patient: 25 - 35 minutes Subjective Date/time seen: 02/26/24 12:35 Interval history: This is a 24 year old male who presented to the hospital with RLE redness/pain. Work up in the hospital included tib/fib x-ray which was negative. He does have noted redness, warmth to RLE. He reports that he has had an ingrown toe nail that he took out a few days prior to fever, chills, redness, and pain on the same leg. He was started on Ancef and Vancomycin. MRSA was negative so they de-escalated the Vancomycin. Today we changed his Ancef to oral Keflex. Patient denies any fever, chills, nausea, vomiting, diarrhea, abdominal pain, chest pain, or shortness of breath. We will continue with Keflex and watch for any change to his redness. Patient states he is overall feeling much better. Review of Systems Review of Systems: redness improving slowly ongoing low grade fevers All systems reviewed & are unremarkable except as noted in HPI and below Constitutional: Constitutional: Reports as per HPI and Reports no additional constitutional complaints Eyes: Eyes: Reports as per HPI and Reports no additional eye complaints ENT: Reports system reviewed and no additional complaints, except as documented and Reports as per HPI Cardiovascular: Cardiovascular: Reports as per HPI and Reports no additional cardiovascular complaints Respiratory: Respiratory: Reports as per HPI and Reports no additional respiratory complaints Gastrointestinal: Gastrointestinal: Reports as per HPI and Reports no additional gastrointestinal complaints Musculoskeletal: Musculoskeletal: Reports no additional musculoskeletal complaints and Reports as per HPI Integumentary/Breasts: Skin/Breast: Reports system reviewed and no additional complaints, except as docu and Reports as per HPI Neurologic: Reports system reviewed and no additional complaints, except as documented and Reports as per HPI Psychiatric: Psychiatric: Reports no additional psychiatric complaints and Reports as per HPI Exam Narrative: General: In no acute distress, well nourished Head: atraumatic, no encephalopathy Eyes: EOMI, PERRLA, sclear ENT: moist mucous membranes, nasal passages clear Neck: supple, no JVD, no adenopathy, trachea midline Cardiac: Normal S1 and S2. RRR, No murmur, gallops or friction rubs, peripheral pulses intact. Respiratory: Lungs clear to auscultation, no adventitious lung sounds Gastrointestinal: soft,
[2024-02-26 13:50] VITALS: BP 151/75; PULSE 93; RESP 18; TEMP 36.7; O2SAT 98
[2024-02-26 20:00] VITALS: O2SAT 98
[2024-02-26 21:26] VITALS: TEMP 37.6
[2024-02-26] MEDS: ACETAMINOPHEN 500 MG TABLET 1000 MG PO (21:26)
[2024-02-26 21:30] VITALS: BP 146/63; PULSE 99; RESP 18; TEMP 37.6; O2SAT 98
[2024-02-26 22:26] VITALS: TEMP 37.1
[2024-02-27] MEDS: CEPHALEXIN 500 MG CAPSULE PO ×2 (05:13→11:01)
[2024-02-27 06:00] VITALS: BP 147/71; PULSE 89; RESP 20; TEMP 36.6; O2SAT 97
[2024-02-27] MEDS: POTASSIUM CHLORIDE 20 MEQ PACKET (FOR LIQUID) 40 MEQ PO (08:46)
[2024-02-27] MEDS: amLODIPine BESYLATE 5 MG TABLET 10 MG PO (08:46)
[2024-02-27] MEDS: ENOXAPARIN 40 MG/0.4 ML SYRINGE SUB-Q (08:46)
--- NOTE | 2024-02-27 08:50 | PM.DS ---
DS: Admitting Diagnosis Discharge Date 02/27/24 Admitting Diagnosis Sepsis Cellulitis of right lower extremity Kidney disease DS: Discharge Diagnosis Discharge Diagnosis (1) Sepsis: Code(s): A41.9 - Sepsis, unspecified organism Status: Acute (2) Cellulitis of right lower extremity: Code(s): L03.115 - Cellulitis of right lower limb Status: Acute (3) Kidney disease: Code(s): N28.9 - Disorder of kidney and ureter, unspecified Status: Acute (4) Hypertension: Code(s): I10 - Essential (primary) hypertension Status: Acute DS: Summary Hospital Course Reason for hospitalization: Sepsis Cellulitis of right lower extremity Kidney disease Hospital Course: This is a 24 year old male who presented to the hospital with RLE redness/pain. Work up in the hospital included tib/fib x-ray which was negative. He does have noted redness, warmth to RLE. He reports that he has had an ingrown toe nail that he took out a few days prior to fever, chills, redness, and pain on the same leg. He was started on Ancef and Vancomycin. MRSA was negative so they de-escalated the Vancomycin. Today we changed his Ancef to oral Keflex. Patient denies any fever, chills, nausea, vomiting, diarrhea, abdominal pain, chest pain, or shortness of breath. We will continue with Keflex and watch for any change to his redness. Patient states he is overall feeling much better. 02/27/24: Redness swelling to right lower extremity has gone down significantly. white blood cell count down to normal range. He denies any new complaints today. Blood culture showing no growth on preliminary read. He is stable for discharge at this time. He will need to finish his course of Keflex and follow-up with his primary care physician in 1 week. Final diagnosis: Sepsis, cellulitis, hypertension Status at Discharge Cognitive/behavioral status at discharge: Alert oriented x4 Functional status at discharge: independent ambulation Overall status at discharge: patient is progressing back to baseline Time Spent with Patient Time attestation: Total time spent providing and/or coordinating discharge services: Time spent: Greater than 30 minutes Exam Narrative: General: In no acute distress, well nourished Head: atraumatic, no encephalopathy Eyes: EOMI, PERRLA, sclera clear ENT: moist mucous membranes, nasal passages clear Neck: supple, no JVD, no adenopathy, trachea midline Cardiac: Normal S1 and S2. RRR, No murmur, gallops or friction rubs, peripheral pulses intact. Respiratory: Lungs clear to auscultation, no adventitious lung sounds, currently on room air Gastrointestinal: soft, non-distended, non-tender, normoactive bowel sounds. : voiding without difficulty. Extremities: moves all extremities well, no edema Skin:Right lower extremity warm, pink, showing improvement overall Neuro: Alert and oriented x4, cranial nerves intact, no neuro deficits. Psych: normal mood, normal affect, interactive DS: Data Data Completed and Pending Completed studies during hospitalization: Tib fib x-ray Pending studies at discharge: Blood cultures Labs on day of discharge: Preliminary micro results at discharge 02/23/24 23:41 Blood Culture - Preliminary Blood 02/23/24 23:41 Blood Culture - Preliminary Blood Procedures/Treatments: None Discharge Plan Discharge Attending physician on discharge: Jason Santos Consulting providers: Sainya Cruz Discharging Clinician: Suma Xavier Anticipated Discharge Date/Time: 02/27/24 08:46 Patient Disposition: Home, Self-Care Activity: as tolerated Diet: as tolerated Discharge Instructions: Finish all of your antibiotic and follow up with Primary care doctor in 1 week. Were noted to have hypertension on this admission and was started on amlodipine 10 mg daily please keep track of her blood pressure over the next week and take these blood pressure readings to primary c
[2024-02-27 09:43] LABS: Basophils Percent Auto 0.5 % (0.2-1.2); Eosinophils Absolute Auto 0.1 K/mm3 (0-0.3); Eosinophils Percent Auto 1.4 % (0-4.4); Hemoglobin 12.1 g/dL (14.0-18.0); Immature Granulocyte Absolute 0.16 K/mm3 (0.00-0.031); Immature Granulocyte Percent A 1.8 % (0-0.5); Lymphocytes Absolute Auto 2.04 K/mm3 (0.9-3.2); Lymphocytes Percent Auto 23.1 % (18.3-44.2); Mean Corpuscular HGB Conc 31.8 g/dl (32-36); Mean Corpuscular Hemoglobin 27.1 pg (26-34); Mean Corpuscular Volume 85.2 fl (80-100); Mean Platelet Volume 9.9 fl (7.4-10.4); Monocytes Absolute Auto 0.8 K/mm3 (0.1-0.6); Monocytes Percent Auto 8.8 % (2.6-8.5); Neutrophils Absolute Auto 5.7 K/mm3 (1.3-6.7); Neutrophils Percent Auto 64.4 % (45.5-73.1); Platelet Count Result 259 k/mm3 (150-375); Red Blood Count 4.46 M/mm3 (4.6-6.20); White Blood Count 8.8 K/mm3 (4.5-10.0)
[2024-02-27 10:01] LABS: Alanine Aminotransferase 37 U/L (6-50); Albumin Level 3.6 g/dL (3.5-5.1); Alkaline Phosphatase 61 U/L (38-126); Anion Gap 2 mmol/L (4-12); Aspartate Amino Transferase 26 U/L (17-59); Bilirubin,Total 0.5 mg/dL (0.2-1.3); Blood Urea Nitrogen 12 mg/dL (9-20); Calcium 8.4 mg/dL (8.4-10.2); Carbon Dioxide 30 mmol/L (22-30); Chloride 105 mmol/L (98-107); Estimated CRCL calculation 214 ml/min; Estimated Glomerular Filt Rate > 60; Glucose 97 mg/dL (65-110); Magnesium 2.2 mg/dL (1.6-2.3); Potassium 4.1 mmol/L (3.4-5.0); Sodium 137 mmol/L (137-145)
--- NOTE | 2024-03-03 14:23 | PC.NURSE ---
Blood cx are negative.
== END 2024-02-27 12:22 | disposition home or self-care (01) ==
LOC: ANHED 02-24 02:09 → ANH3MEDSUR 02-24 04:18
PROVIDERS: Family Medicine; Nurse Practitioner Acute Care; Student in an Organized Health Care Education/Training Program; Admitting Provider Internal Medicine; Emergency Provider Physician Assistant; Visit Provider Internal Medicine
DX: A41.9 Sepsis, unspecified organism (principal); L03.115 Cellulitis of right lower limb; N28.9 Disorder of kidney and ureter, unspecified; I10 Essential (primary) hypertension
CPT/HCPCS: 36415; 73590; 80048; 80053; 81001; 83605; 83735; 85025; 85027; 85380; 85610; 85652; 85730; 86140; 87040; 96361; 96365; 96366; 96367; 96372; 99285; A9270; G0378; G0379; J0690; J1650; J3370; J7030; J7120

== ENCOUNTER 2024-08-15 13:22 | Emergency (ER) | payer SELFPAY ==
[2024-08-15 13:42] VITALS: BP 136/80; PULSE 88; RESP 18; TEMP 37.1; O2SAT 99
--- NOTE | 2024-08-15 14:09 | ED.URI ---
HPI - URI/Sore Throat General Chief Complaint: Upper Respiratory Infection Stated Complaint: congestion / LT Ear clogged Time Seen by Provider: 08/15/24 13:54 Source: patient and RN notes reviewed Mode of arrival: ambulatory Limitations: no limitations History of Present Illness HPI Narrative: Patient presents today with a 2 day history of nasal congestion, productive cough, left ear clogging. Denies shortness of breath or fever. He has tried DayQuil and Tylenol with mild relief. States members of his family at home are also sick with similar symptoms. Related Data Home Medications Medication Instructions Recorded Confirmed No Home Medications 08/15/24 08/15/24 Allergies Allergy/AdvReac Type Severity Reaction Status Date / Time No Known Allergies Allergy Verified 08/15/24 13:46 Review of Systems Review of Systems: CONSTITUTIONAL: Denies body aches, fever, chills, or sweats. EYES: Denies visual changes, redness, or discharge. ENT: Denies rhinorrhea, sore throat, or otalgia.+ congestion, left ear clogging CARDIOVASCULAR: Denies chest pain, palpitations, or edema. RESPIRATORY: Denies dyspnea.+ cough GASTROINTESTINAL: Denies abdominal pain, nausea, vomiting, or diarrhea. GENITOURINARY: Denies dysuria or hematuria. SKIN: Denies rash, itching, or wounds. MUSCULOSKELETAL: Denies back pain, joint pain, or myalgia. NEUROLOGIC: Denies headache, numbness, tingling, or weakness. PSYCH: Denies depression or anxiety. [facility] Past Medical History Medical History Abnormal biopsy of kidney Kidney disease Social History Social History Smoking status: Never smoker Alcohol intake: never Substance use: never Do You Feel Safe in your Home?: Yes Lack of Transportation: No Lack of Food: Never True Current Housing: I Have Housing Concerned About Future Housing: No Difficulty Paying Gas/Electric Bills: No Difficulty Paying for Meds: No Currently Unemployed: No Education: High School Diploma/GED Difficulty w/ Childcare or Family Care: No Gender identity (if verbalized by the patient): Female Spiritual care concerns: No Comments At time of signature, I have reviewed and agree with nursing past medical, surgical, social and family history unless otherwise noted. Please see nursing chart for further information. There is no relevant family history pertinent to the presenting complaint Exam Narrative: GENERAL: Well-appearing, well-nourished, and in no acute distress. HEAD: Normocephalic, atraumatic. EYES: EOMI. No redness or drainage. Conjunctivae normal. ENT: Mucous membranes pink and moist. Nares mildly congested. No rhinorrhea. TMs normal bilaterally. Throat normal. Uvula midline. NECK: Normal AROM. Supple. No lymphadenopathy. CHEST: No respiratory distress. Clear to auscultation. HEART: Regular rate and rhythm. No murmur appreciated. EXTREMITIES: Normal range of motion. No edema. SKIN: Warm, dry, no rash. Capillary refill normal. Normal skin turgor. NEURO: No focal deficits. Alert and oriented x3. Gait steady. PSYCH: Normal affect. No signs of depression or anxiety. Course Course Level of Care: Express Care Visit Vital Signs Vital signs: Vital Signs Temperature 98.8 F 08/15/24 13:42 Pulse Rate 88 08/15/24 13:42 Respiratory Rate 18 08/15/24 13:42 Blood Pressure 136/80 08/15/24 13:42 Pulse Oximetry 99 08/15/24 13:42 Oxygen Delivery Room Air 08/15/24 13:42 Temperature 98.8 F 08/15/24 13:42 Pulse Rate 88 08/15/24 13:42 Respiratory Rate 18 08/15/24 13:42 Blood Pressure 136/80 08/15/24 13:42 Pulse Oximetry 99 08/15/24 13:42 Oxygen Delivery Room Air 08/15/24 13:42 Reviewed MDM - URI/Sore Throat MDM Narrative Medical decision making narrative: Patient declined any testing today. Symptoms likely vi
== END 2024-08-15 14:17 | disposition home or self-care (01) ==
PROVIDERS: Emergency Provider Nurse Practitioner
DX: J06.9 Acute upper respiratory infection, unspecified (principal)
CPT/HCPCS: 99211; 99213; G0463

== ENCOUNTER 2024-12-28 16:17 | Emergency (ER) | payer SELFPAY ==
--- NOTE | ~2024-12-28 | US_ITS ---
EXAMINATION: US venous doppler LE RT DATE: 12/28/2024 18:35 INDICATION: Right lower extremity pain and swelling TECHNIQUE: Grayscale ultrasound images without and with compression and Doppler ultrasound images of the right lower extremity veins were obtained. COMPARISON: None. FINDINGS: The visualized portions of right common femoral vein, profunda (deep) femoral vein, femoral vein, pop liteal vein and greater saphenous vein outflow are patent. Noncompressibility and absence of flow is identified within the posterior tibial and peroneal veins o f the right lower extremity, consistent with deep venous thrombosis. IMPRESSION: Deep venous thrombosis below the knee of the right lower extremity, as detailed above Reviewed, dictated and finalized at location A. RE DANCE CALLER
[2024-12-28 16:46] VITALS: BP 177/94; PULSE 85; RESP 16; TEMP 36.4; O2SAT 99
--- NOTE | 2024-12-28 18:12 | ED.SKABFB ---
HPI - Skin/Abscess/Foreign Bdy General Chief complaint: Skin/Abscess/Foreign Body Stated complaint: Cellulitis in R leg? Time Seen by Provider: 12/28/24 21:23 Focused HPI: this is a 24-year-old male who presents to the ED for chief complaint of RLE erythema and tenderness over the last 24 hours. States that the leg feels swollen and painful to touch. States that he had cellulitis last year and this feels similar, however not quite as bad today. Denies any immunocompromised condition or other medical history. He does note that he had a scrape a few days ago to the anterior right coronado. Denies fevers GENERAL: Well-appearing, well-nourished, and in no acute distress. HEAD: Normocephalic, atraumatic. CHEST: Clear to auscultation. No respiratory distress. HEART: Regular rate and rhythm. EXTR: RLE with erythema, warmth and tenderness throughout the anterior coronado. There is mild edema present. LLE is benign NEURO: Alert and oriented x3. Patient screened in triage and initial orders placed. Additional care and disposition to be based upon diagnostic testing and treatment. Source: patient Mode of arrival: ambulatory Limitations: no limitations Related Data Allergies Allergy/AdvReac Type Severity Reaction Status Date / Time No Known Allergies Allergy Verified 08/15/24 13:46 Review of Systems Review of Systems: All systems as dictated in HPI [facility] Past Medical History Medical History (Reviewed 08/15/24 @ 14:10 by Jamilah Lima, [facility], ) Abnormal biopsy of kidney Kidney disease Social History Social History (Reviewed 08/15/24 @ 14:10 by Jamilah Lima, [facility], ) Smoking status: Never smoker Alcohol intake: never Substance use: never Do You Feel Safe in your Home?: Yes Lack of Transportation: No Lack of Food: Never True Current Housing: I Have Housing Concerned About Future Housing: No Difficulty Paying Gas/Electric Bills: No Difficulty Paying for Meds: No Currently Unemployed: No Education: High School Diploma/GED Difficulty w/ Childcare or Family Care: No Gender identity (if verbalized by the patient): Female Spiritual care concerns: No Exam Narrative: GENERAL: Well-appearing, well-nourished, and in no acute distress. HEAD: Normocephalic, atraumatic. EYES: PERRLA and EOMI. ENT: Nares clear, no rhinorrhea or epistaxis. Mucous membranes moist. Oropharynx without tonsillar hypertrophy exudate or other lesions. NECK: Supple. No adenopathy or masses. CHEST: No respiratory distress. Clear to auscultation. No wheezes rales or rhonchi HEART: Regular rate and rhythm. No murmur heard. Normal peripheral pulses. ABDOMEN: Soft, nontender, nondistended, normal active bowel sounds. MSK: Warmth erythema and tenderness to the right lower extremity around the anterior calf. There is mild pitting edema. Left lower extremity is benign SKIN: See above NEURO: Alert and oriented x4. No focal deficits. PSYCH: Normal mood and affect. Course Vital Signs Vital signs: Vital Signs Temperature 97.6 F 12/28/24 16:46 Pulse Rate 85 12/28/24 16:46 Respiratory Rate 16 12/28/24 16:46 Blood Pressure 177/94 H 12/28/24 16:46 Pulse Oximetry 99 12/28/24 16:46 Temperature 97.6 F 12/28/24 16:46 Pulse Rate 85 12/28/24 16:46 Respiratory Rate 16 12/28/24 16:46 Blood Pressure 177/94 H 12/28/24 16:46 Pulse Oximetry 99 12/28/24 16:46 MDM - Skin/Abscess/Foreign Bdy MDM Narrative Medical decision making narrative: This is a 24-year-old male who presents to the ED for chief complaint of right lower extremity redness warmth, tenderness. Vitals are showing elevated blood pressure but otherwise normal. Afebrile. Lab work lab work shows mildly elevated white count at 14.1. CMP unremarkable. Coags are normal. Ultrasound Doppler right lower extremity does show acute DVT below the knee. Feel that the white count is most likely due to this DVT. Less suspicious for infection given the above imaging results. Patient was given 1st dose of Xarelto here [facility]. He was given a starter pack for Xarelto and encouraged to follow-up with PCP. States he is in between insurances, and will contact PCP as soon as he is able. Patient will be discharged in stable condition. Supportive measures discussed and return precautions given. Patient is understanding and agreeable with plan for discharge with PCP follow-up. Lab Data 12/28/24 21:25 12/28/24 21:25 Labs: Lab Results 12/28/24 Range/Units 21:25 WBC 14.1 H (4.5-10.0) K/mm3 RBC 5.05 (4.6-6.20) M/mm3 Hgb 13.5 L (14.0-18.0) g/dL Hct 41.5 L (42.0-52.0) % MCV 82.2 (80-100) fl MCH 26.7 (26-34) pg MCHC 32.5 (32-36) g/dl RDW 13.0 (11.5-14.5) % Plt Count 325 (150-375) k/mm3 MPV 9.5 (7.4-10.4) fl Immature Gran % (Auto) 1.6 H (0-0.5) % Neut % (Auto) 59.9 (45.5-73.1) % Lymph % (Auto) 30.2 (18.3-44.2) % [place] % (Auto) 6.9 (2.6-8.5) % Eos % (Auto) 1.0 (0-4.4) % Baso % (Auto) 0.4 (0.2-1.2) % Lymph # (Auto) 4.25 H (0.9-3.2) K/mm3 [place] # (Auto) 1.0 H (0.1-0.6) K/mm3 Eos # (Auto) 0.1 (0-0.3) K/mm3 Baso # (Auto) 0.1 (0.0-0.1) K/mm3 Abs Immat Gran (auto) 0.22 H (0.00-0.031) K/mm3 Absolute Neuts (auto) 8.4 H (1.3-6.7) K/mm3 Absolute Nucleated RBC 0.000 (0.0-0.012) K/mm3 Nucleated RBC % 0.0 (0.0-0.2) % PT 14.0 (11.1-14.7) Seconds INR 1.1 APTT 26.5 (22.3-36.8) Seconds Sodium 138 (137-145) mmol/L Potassium 3.6 (3.4-5.0) mmol/L Chloride 101 (98-107) mmol/L Carbon Dioxide 27 (22-30) mmol/L Anion Gap 10 (4-12) mmol/L BUN 15 (9-20) mg/dL Creatinine 0.83 (0.7-1.3) mg/dL Estim Creat Clear Calc 178 ml/min Estimated GFR > 60 (59 - ) Glucose 82 (65-110) mg/dL Calcium 9.3 (8.4-10.2) mg/dL Total Bilirubin 0.8 (0.2-1.3) mg/dL AST 25 (17-59) U/L ALT 34 (6-50) U/L Alkaline Phosphatase 74 (38-126) U/L Total Protein 8.0 (6.3-8.2) g/dL Albumin 4.3 (3.5-5.1) g/dL Discharge Plan Discharge Clinical Impression: DVT (deep venous thrombosis) Patient Disposition: Home, Self-Care Condition: Stable Instructions: Antibiotic Form, Deep Vein Thrombosis (ED) Additional Instructions: Your exam today shows evidence of a blood clot in the leg. Please take Xarelto which is a blood thinner, as prescribed, and follow-up closely with PCP on this issue. Take regular Tylenol for pain control and avoid NSAIDs such as ibuprofen. Patient Language: Bulgarian Prescriptions: New Xarelto DVT-PE Treat 30d Start 15 mg (42)- 20 mg (9) tablets,dose pack See Rx Instructions .ROUTE .COMPLEX Qty: 51 0RF Rx Instructions: take one-15 mg tablet twice daily for 21 days, then one-20 mg tablet once daily; must take with meal/food Follow-up/Referrals: PHYSICIAN,JET MAN [Primary Care Provider] - Time of Disposition: 22:00
[2024-12-28 21:35] LABS: Basophils Absolute Auto 0.1 K/mm3 (0.0-0.1); Basophils Percent Auto 0.4 % (0.2-1.2); Eosinophils Absolute Auto 0.1 K/mm3 (0-0.3); Hematocrit 41.5 % (42.0-52.0); Hemoglobin 13.5 g/dL (14.0-18.0); Immature Granulocyte Absolute 0.22 K/mm3 (0.00-0.031); Immature Granulocyte Percent A 1.6 % (0-0.5); Lymphocytes Absolute Auto 4.25 K/mm3 (0.9-3.2); Lymphocytes Percent Auto 30.2 % (18.3-44.2); Mean Corpuscular HGB Conc 32.5 g/dl (32-36); Mean Corpuscular Hemoglobin 26.7 pg (26-34); Mean Corpuscular Volume 82.2 fl (80-100); Mean Platelet Volume 9.5 fl (7.4-10.4); Monocytes Percent Auto 6.9 % (2.6-8.5); Neutrophils Absolute Auto 8.4 K/mm3 (1.3-6.7); Neutrophils Percent Auto 59.9 % (45.5-73.1); Platelet Count Result 325 k/mm3 (150-375); Red Blood Count 5.05 M/mm3 (4.6-6.20); White Blood Count 14.1 K/mm3 (4.5-10.0)
[2024-12-28 21:45] LABS: Alanine Aminotransferase 34 U/L (6-50); Albumin Level 4.3 g/dL (3.5-5.1); Alkaline Phosphatase 74 U/L (38-126); Anion Gap 10 mmol/L (4-12); Aspartate Amino Transferase 25 U/L (17-59); Bilirubin,Total 0.8 mg/dL (0.2-1.3); Blood Urea Nitrogen 15 mg/dL (9-20); Calcium 9.3 mg/dL (8.4-10.2); Carbon Dioxide 27 mmol/L (22-30); Chloride 101 mmol/L (98-107); Estimated CRCL calculation 178 ml/min; Estimated Glomerular Filt Rate > 60; Glucose 82 mg/dL (65-110); Potassium 3.6 mmol/L (3.4-5.0); Sodium 138 mmol/L (137-145)
[2024-12-28 21:46] LABS: INR 1.1
[2024-12-28 21:47] LABS: Partial Thromboplastin Time 26.5 Seconds (22.3-36.8)
[2024-12-28] MEDS: RIVAROXABAN 15 MG TABLET PO (22:05)
== END 2024-12-28 22:13 | disposition home or self-care (01) ==
LOC: ANHED 22:10
PROVIDERS: Emergency Provider Physician Assistant
DX: I82.441 Acute embolism and thrombosis of right tibial vein (principal); I82.451 Acute embolism and thrombosis of right peroneal vein; N28.9 Disorder of kidney and ureter, unspecified
CPT/HCPCS: 36415; 80053; 85025; 85610; 85730; 93971; 99284; A9270

== ENCOUNTER 2025-03-06 16:33 | Emergency (ER) | payer OTHER, SELFPAY ==
--- NOTE | 2025-03-06 16:34 | ED_ITS ---
HPI - Nausea/Vomiting/Diarrhea General Chief complaint: Nausea/Vomiting/Diarrhea Stated complaint: stomach pain Time Seen by Provider: 03/06/25 16:33 Source: patient Mode of arrival: ambulatory Limitations: no limitations History of Present Illness HPI Narrative: Patient is a 25-year-old male who presents with nausea, vomiting and diarrhea for 5 days. Sister recently had a GI bug in house for her symptoms only lasted 3 days. States any time he eats he immediately has to go to the bathroom. Denies any abdominal pain or cramping but does report feeling full and nauseous immediately after eating. Patient has tried Pepcid and Imodium with no relief. Denies any blood in stool or vomit. Related Data Allergies Allergy/AdvReac Type Severity Reaction Status Date / Time No Known Allergies Allergy Verified 03/06/25 16:37 Review of Systems Review of Systems: All systems reviewed & are unremarkable except as noted in HPI and below Constitutional: Constitutional: Denies body ache(s), Denies chills, Denies fatigue, Denies fever(s), Denies headache(s), Denies malaise and Denies weakness Eyes: Eyes: Denies blurry vision, Denies irritation and Denies loss of vision ENT: Denies otalgia, Denies headache(s), Denies nasal discharge, Denies sinus pain and Denies sore throat Cardiovascular: Cardiovascular: Denies chest pain, Denies irregular heart rhythm and Denies dyspnea Respiratory: Respiratory: Denies dyspnea Gastrointestinal: Gastrointestinal: Denies abdominal pain, Denies melena, Denies hematochezia, Reports diarrhea, Reports nausea and Reports vomiting Musculoskeletal: Musculoskeletal: Denies back pain, Denies myalgias and Denies arthralgias Integumentary/Breasts: Skin/Breast: Denies pruritus and Denies rash Neurologic: Denies headache(s), Denies loss of vision and Denies weakness Psychiatric: Psychiatric: Reports no additional psychiatric complaints Endocrine: Endocrine: Denies fatigue PMFSH Past Medical History Medical History Abnormal biopsy of kidney Kidney disease Social History Social History Smoking status: Never smoker Alcohol intake: never Substance use: never Do You Feel Safe in your Home?: Yes Lack of Transportation: No Lack of Food: Never True Current Housing: I Have Housing Concerned About Future Housing: No Difficulty Paying Gas/Electric Bills: No Difficulty Paying for Meds: No Currently Unemployed: No Education: High School Diploma/GED Difficulty w/ Childcare or Family Care: No Gender identity (if verbalized by the patient): Female Spiritual care concerns: No Comments At time of signature, agree with nursing past medical, surgical, social and family history. There is no relevant family history pertinent to the presenting complaint. Exam Const: General: cooperative, healthy appearing, comfortable, no acute distress and well nourished Nutritional Appearance: well nourished Orientation/consciousness: patient oriented x3 Limitations: no limitations HENMT: Head: normal to inspection, normocephalic and atraumatic Ears: hearing grossly normal bilaterally and external ears normal Face/Nose/Sinus: Normal external nose present, normal facial exam and face symmetric Face and sinus: normal facial exam and face symmetric Mouth: Yes lip normal Eyes: General: appearance normal, both eyes and all related structures Alignment and Position: alignment normal and position normal Periorbital: periorbital findings normal Eyelids: eyelids normal Pupils: Equal, round and reactive pupils present EOM: EOMs intact bilaterally Neck: Neck: normal visual inspection, full ROM and supple Chest: Chest palpation & inspection: normal inspection of the chest Resp: Effort & Inspection: normal respiratory effort and able to speak in complete sentences Auscultation: clear to auscultation bilaterally Cardio: Rate: regular rate Rhythm: regular rhythm Heart sounds: S1 normal heart sound present and S2 normal heart sound present GI: Inspection: normal to inspection GI Palp: No abdominal tenderness, Yes Soft to palpation, No Tenderness to palpation present (GI) and No Guarding due to palpation present (GI) Skin: General skin exam: normal color and no rashes or lesions noted Neuro: General: patient oriented x3 and moves all extremities Cranial nerves: Yes Equal, round and reactive pupils present Speech: normal speech Gait exam (Neuro): Normal gait present Extrem: General: normal to inspection, full ROM and no edema Psych: Appearance: grossly normal and well kempt Mental Status: mental status grossly normal Speech and movement: Normal speech and movement present Affect: normal affect Attitude: cooperative Thought process: Normal thought process present Course Course Emergency Course: Patient is aware of diagnosis, understands and agrees to treatment plan. Anticipatory guidance given. Patient agrees to follow-up as directed and is aware of reasons to seek care at the emergency department. Portions of this record may have been created with voice recognition software Level of Care: Express Care Visit Vital Signs Vital signs: Reviewed MDM - Nausea/Vomiting/Diarrhea MDM Narrative Medical decision making narrative: Patient still has appendix and gallbladder. No tenderness on palpation throughout stomach. Symptoms consistent with gastroenteritis. Will treat with pantoprazole and Zofran in case GERD is also playing a factor. Patient was Given referral for PCP. Pt well hydrated appearing, in no respiratory distress, hemodynamically stable. Recommend supportive care. The patient is stable at time of discharge the clinical impression was discussed and the patient was given the opportunity to ask questions, which were addressed as completely as possible given the information available at present. Anticipatory guidance and return to care precautions were discussed and the importance of primary care follow-up was stressed and encouraged. The patient voiced understanding of the plan, indic ations to return, and the need for follow-up. Exam findings show no acute concerns or changes Patient is appropriate for outpatient treatment and follow-up. Differential Diagnosis Differential diagnosis: Likely food poisoning, gastroenteritis, clostridium difficile infection, drug-induced nausea and vomiting and dehydration Medical Records Attestation: I reviewed the patient's medical records. Discharge Plan Discharge Clinical Impression: Gastroenteritis Patient Disposition: Home Condition: Stable Instructions: Gastroenteritis (ED) Additional Instructions: Stay hydrated. Take small sips of fluid containing electrolytes frequently(Body [place], Gatorade, Powerade, liquid IV). Eat small meals that her very bland including bananas, applesauce, rice, toast, boiled or grilled chicken, soup. Do not eat anything fried, spicy or overly acidic. You should go to the hospital if you experience return of persistent nausea and vomiting that does not resolve and does not allow you to tolerate any food or fluids, persistent fevers for greater than 2-3 more days, increasing abdominal pain that persists despite medications, persistent diarrhea, dizziness, syncope (fainting), or for any other concerns. Patient Language: [place] Citizen Prescriptions: New ondansetron 4 mg tablet,disintegrating 4 mg PO Q6-8H PRN (Reason: nausea and vomiting) Qty: 7 0RF pantoprazole 40 mg tablet,delayed release (DR/EC) 40 mg PO HS 14 Days Qty: 14 0RF No Action Xarelto DVT-PE Treat 30d Start 15 mg (42)- 20 mg (9) tablets,dose pack See Rx Instructions .ROUTE .COMPLEX Qty: 51 0RF Rx Instructions: take one-15 mg tablet twice daily for 21 days, then one-20 mg tablet once daily; must take with meal/food Follow-up/Referrals: Henrik Newsome MD [Physician] - 3 Days (Establish care) Stand Alone Forms: Work/School Release IP Time of Disposition: 17:26
[2025-03-06 16:40] VITALS: BP 153/81; PULSE 95; RESP 16; TEMP 36.2; O2SAT 99
== END 2025-03-06 17:31 | disposition home or self-care (01) ==
PROVIDERS: Emergency Provider Nurse Practitioner Family; Referring Provider Emergency Medicine
DX: K52.9 Noninfective gastroenteritis and colitis, unspecified (principal); N18.9 Chronic kidney disease, unspecified
CPT/HCPCS: 99213; G0463

== ENCOUNTER 2025-03-07 09:34 | Emergency (ER) | payer OTHER, SELFPAY ==
--- NOTE | ~2025-03-07 | CT_ITS ---
EXAMINATION: CT abdomen pelvis w con DATE: 03/07/2025 10:59 INDICATION: Abdominal pain TECHNIQUE: Computed tomography (CT) of the abdomen and pelvis was performed with 100 mL Omnipaque-350 intravenous contrast. Automated exposure control and iterative reconstruction technique were employe d. The dose-length product was 1488.19 mGy-cm. COMPARISON: None FINDINGS: Lung bases are clear. Heart size normal. No pericardial or pleural effusion. Diffuse hepatic steatosi s with focal sparing along the gallbladder fossa. Gallbladder, spleen, pancreas, bilateral adrenal gl ands and kidneys are normal. Bowels including the appendix are normal. Bladder is normal. No free int raperitoneal gas or fluid within the abdomen and pelvis. There is either a small amount of loculated ascites or atrophic testis within the right inguinal canal. The scrotum is not included within the fi eld-of-view. No pathologically enlarged abdominal or pelvic lymphadenopathy. Mild lower thoracic spon dylosis with chronic appearing mild anterior wedging at T9-T11 with multiple small Schmorl's nodes in the lower thoracic spine consistent with Scheuermann's disease. IMPRESSION: 1. No acute intra-abdominal/pelvic process.. Specifically the appendix and gallbladder are normal. 2. Small amount of loculated ascites versus atrophic right testis within the right inguinal canal. Co rrelate with physical exam of the scrotum which is not included within the field of imaging. 3. Diffuse hepatic steatosis. Reviewed, dictated and finalized at location A. IMPRESSION: 1. No acute intra-abdominal/pelvic process.. Specifically the appendix and gall bladder are normal. 2. Small amount of loculated ascites versus atrophic right testis within the ri ght inguinal canal. Correlate with physical exam of the scrotum which is not in cluded within the field of imaging. 3. Diffuse hepatic steatosis.
--- NOTE | ~2025-03-07 | US_ITS ---
EXAMINATION: US scrotum doppler DATE: 03/07/2025 13:01 INDICATION: Abnormal CAT scan TECHNIQUE: Sonographic evaluation of the scrotum was performed assessing grayscale appearance and col or Doppler flow. Spectral Doppler evaluation was also performed. COMPARISON: CT examination of the abdomen and pelvis, performed on the same day. FINDINGS: RIGHT TESTICLE: The right testicle measures 3.9 x 2.1 x 4.0 cm. Arterial and venous flow are present. Trace right-sided hydrocele is present. No varicocele is identified. RIGHT EPIDIDYMIS: The right epididymis measures 6.2 x 9.0mm. LEFT TESTICLE: The left testicle measures 4.6 x 2.1 x 3.5 cm. Arterial and venous flow are demonstrated. Trace left-sided hydrocele is present. No varicocele is identified. LEFT EPIDIDYMIS: The left epididymis measures 8 x 18 mm. IMPRESSION: Trace hydrocele detected bilaterally. Otherwise, no sonographic abnormality is detected within the scrotum, as detailed above. Specifically, the right testicle is unremarkable, and not located within the right inguinal canal. Perhaps this represented a small amount of loculated ascites, as suggested on CT examination, for [facility] clinical correlation (physical examination) was recommended. Reviewed, dictated and finalized at location A. IMPRESSION: Trace hydrocele detected bilaterally. Otherwise, no sonographic abnormality is detected within the scrotum, as detail ed above. Specifically, the right testicle is unremarkable, and not located within the ri ght inguinal canal. Perhaps this represented a small amount of loculated ascites, as suggested on C T examination, for which clinical correlation (physical examination) was recomm ended.
[2025-03-07 09:38] VITALS: BP 168/90; PULSE 98; RESP 16; TEMP 36.6; O2SAT 96
[2025-03-07 10:03] VITALS: BP 185/101; PULSE 93; RESP 20; O2SAT 99
[2025-03-07] MEDS: PANTOPRAZOLE SODIUM IV 40 MG VIAL IV PUSH (10:16)
[2025-03-07] MEDS: ONDANSETRON INJ 4 MG/2 ML VIAL IV PUSH (10:16)
[2025-03-07] MEDS: SODIUM CHLORIDE 0.9% IV 1,000 ML 999 ML IV CONT (10:16)
[2025-03-07 10:25] LABS: Basophils Absolute Auto 0.1 K/mm3 (0.0-0.1); Basophils Percent Auto 0.6 % (0.2-1.2); Eosinophils Absolute Auto 0.4 K/mm3 (0-0.3); Eosinophils Percent Auto 4.1 % (0-4.4); Hematocrit 44.3 % (42.0-52.0); Hemoglobin 13.8 g/dL (14.0-18.0); Immature Granulocyte Absolute 0.17 K/mm3 (0.00-0.031); Immature Granulocyte Percent A 1.8 % (0-0.5); Lymphocytes Absolute Auto 3.01 K/mm3 (0.9-3.2); Lymphocytes Percent Auto 31.1 % (18.3-44.2); Mean Corpuscular HGB Conc 31.2 g/dl (32-36); Mean Corpuscular Hemoglobin 26.3 pg (26-34); Mean Corpuscular Volume 84.4 fl (80-100); Mean Platelet Volume 9.5 fl (7.4-10.4); Monocytes Absolute Auto 0.7 K/mm3 (0.1-0.6); Monocytes Percent Auto 7.1 % (2.6-8.5); Neutrophils Absolute Auto 5.3 K/mm3 (1.3-6.7); Neutrophils Percent Auto 55.3 % (45.5-73.1); Platelet Count Result 295 k/mm3 (150-375); Red Blood Count 5.25 M/mm3 (4.6-6.20); Red Cell Distribution Width 13.6 % (11.5-14.5); White Blood Count 9.7 K/mm3 (4.5-10.0)
[2025-03-07 10:31] LABS: Add Urine Microscopic? YES; Appearance Urine Clear (Clear); Bacteria Urine None Seen /hpf; Bilirubin Urine Negative (Negative); Blood Urine Negative (Negative); Color Urine Yellow (Yellow); Glucose Urine UA Negative (Negative); Ketones Urine Trace mg/dL (Negative); Leukocyte Esterase Ur Negative LEU/UL (Negative); Nitrate Urine Negative (Negative); Non Pathogenic Casts 0-2; Protein Urine 2+ mg/dL (Negative); RBC Urine 0-2 /hpf (0-2); Specific Grav Ur 1.026 (1.001-1.035); Squamous Epithelial Cell Urine None Seen /hpf (Few); WBC Urine 0-5 /hpf (0-3)
[2025-03-07 10:38] LABS: Alanine Aminotransferase 80 U/L (6-50); Albumin Level 4.3 g/dL (3.5-5.1); Alkaline Phosphatase 71 U/L (38-126); Anion Gap 8 mmol/L (4-12); Aspartate Amino Transferase 47 U/L (17-59); Bilirubin,Total 0.3 mg/dL (0.2-1.3); Blood Urea Nitrogen 15 mg/dL (9-20); Calcium 8.5 mg/dL (8.4-10.2); Carbon Dioxide 29 mmol/L (22-30); Chloride 103 mmol/L (98-107); Estimated CRCL calculation 176 ml/min; Estimated Glomerular Filt Rate > 60; Glucose 91 mg/dL (65-110); Lipase 74 U/L (23-300); Potassium 3.6 mmol/L (3.4-5.0); Sodium 140 mmol/L (137-145)
--- NOTE | 2025-03-07 13:24 | ED.GENADULT ---
HPI - General Adult General Chief complaint: Abdominal Pain Stated complaint: abd pain Time Seen by Provider: 03/07/25 09:48 History of Present Illness HPI narrative: Patient 25-year-old gentleman who presents emergency department chief complaint of abdominal pain. Patient states pain been ongoing for the last 1/2 weeks reports that this worse after he eats and drinks. The patient reports that he does have a chronically undescended testis on the right side Related Data Allergies Allergy/AdvReac Type Severity Reaction Status Date / Time No Known Allergies Allergy Verified 03/07/25 10:08 Review of Systems Review of Systems: A 10 system review of systems was completed on the patient and is negative except for what is stated in the HPI. Nursing and ancillary documentation was reviewed. [facility] Past Medical History Medical History Abnormal biopsy of kidney Kidney disease Social History Social History Smoking status: Never smoker Alcohol intake: never Substance use: never Do You Feel Safe in your Home?: Yes Lack of Transportation: No Lack of Food: Never True Current Housing: I Have Housing Concerned About Future Housing: No Difficulty Paying Gas/Electric Bills: No Difficulty Paying for Meds: No Currently Unemployed: No Education: High School Diploma/GED Difficulty w/ Childcare or Family Care: No Gender identity (if verbalized by the patient): Female Spiritual care concerns: No Exam Narrative: GENERAL: Well-appearing, well-nourished, and in no acute distress. HEAD: Normocephalic, atraumatic. EYES: PERRLA and EOMI. ENT: Nares clear, no rhinorrhea or epistaxis. Mucous membranes moist. NECK: Supple. CHEST: Clear to auscultation. No respiratory distress. HEART: Regular rate and rhythm. No murmur heard. Normal peripheral pulses. ABDOMEN: Soft, tenderness to palpation the epigastric region, nondistended, normal active bowel sounds. : Left testicle is descended nontender right testicle is nondistended there is no tenderness to palpation EXTREMITIES: Normal range of motion. No edema. SKIN: Warm, dry, no rash. NEURO: No focal deficits. Alert and oriented x3. PSYCH: Normal mood and affect. Course Vital Signs Vital signs: Vital Signs Temperature 36.6 C 03/07/25 09:38 Pulse Rate 98 03/07/25 09:38 Respiratory Rate 16 03/07/25 09:38 Blood Pressure 168/90 H 03/07/25 09:38 Pulse Oximetry 96 03/07/25 09:38 Oxygen Delivery Room Air 03/07/25 09:38 Temperature 36.6 C 03/07/25 09:38 Pulse Rate 93 03/07/25 10:03 Respiratory Rate 20 03/07/25 10:03 Blood Pressure 185/101 H 03/07/25 10:03 Pulse Oximetry 99 03/07/25 10:03 Oxygen Delivery Room Air 03/07/25 10:03 Medical Decision Making MDM Narrative Medical decision making narrative: Laboratory studies were obtained on the patient showed a white count of 9.7 electrolytes are within normal limits urinalysis showed no evidence UTI CT scan of the abdomen pelvis showed 1. No acute intra-abdominal/pelvic process.. Specifically the appendix and gallbladder are normal. 2. Small amount of loculated ascites versus atrophic right testis within the right inguinal canal. Correlate with physical exam of the scrotum which is not included within the field of imaging. 3. Diffuse hepatic steatosis. Scrotal ultrasound was ordered Trace hydrocele detected bilaterally. Otherwise, no sonographic abnormality is detected within the scrotum, as detailed above. Specifically, the right testicle is unremarkable, and not located within the right inguinal canal. Perhaps this represented a small amount of loculated ascites, as suggested on CT examination, for which clinical correlation (physical examination) was recommended. I Vital Signs Vital Signs: Vital Signs Temperature 36.6 C 03/07/25 09:38 Pulse Rate 98 03/07/25 09:38 Respiratory Rate 16 03/07/25 09:38 Blood Pressure 168/90 H 03/07/25 09:38 Pulse Oximetry 96 03/07/25 09:38 Oxygen Delivery Room Air 03/07/25 09:38 Temperature 36.6 C 03/07/25 09:38 Pulse Rate 93 03/07/25 10:03 Respiratory Rate 20 03/07/25 10:03 Blood Pressure 185/101 H 03/07/25 10:03 Pulse Oximetry 99 03/07/25 10:03 Oxygen Delivery Room Air 03/07/25 10:03 Lab Data 03/07/25 10:14 03/07/25 10:14 Labs: Lab Results 03/07/25 Range/Units 10:14 WBC 9.7 (4.5-10.0) K/mm3 RBC 5.25 (4.6-6.20) M/mm3 Hgb 13.8 L (14.0-18.0) g/dL Hct 44.3 (42.0-52.0) % MCV 84.4 (80-100) fl MCH 26.3 (26-34) pg MCHC 31.2 L (32-36) g/dl RDW 13.6 (11.5-14.5) % Plt Count 295 (150-375) k/mm3 MPV 9.5 (7.4-10.4) fl Immature Gran % (Auto) 1.8 H (0-0.5) % Neut % (Auto) 55.3 (45.5-73.1) % Lymph % (Auto) 31.1 (18.3-44.2) % [place] % (Auto) 7.1 (2.6-8.5) % Eos % (Auto) 4.1 (0-4.4) % Baso % (Auto) 0.6 (0.2-1.2) % Lymph # (Auto) 3.01 (0.9-3.2) K/mm3 [place] # (Auto) 0.7 H (0.1-0.6) K/mm3 Eos # (Auto) 0.4 H (0-0.3) K/mm3 Baso # (Auto) 0.1 (0.0-0.1) K/mm3 Abs Immat Gran (auto) 0.17 H (0.00-0.031) K/mm3 Absolute Neuts (auto) 5.3 (1.3-6.7) K/mm3 Absolute Nucleated RBC 0.000 (0.0-0.012) K/mm3 Nucleated RBC % 0.0 (0.0-0.2) % Sodium 140 (137-145) mmol/L Potassium 3.6 (3.4-5.0) mmol/L Chloride 103 (98-107) mmol/L Carbon Dioxide 29 (22-30) mmol/L Anion Gap 8 (4-12) mmol/L BUN 15 (9-20) mg/dL Creatinine 0.90 (0.7-1.3) mg/dL Estim Creat Clear Calc 176 ml/min Estimated GFR > 60 (59 - ) Glucose 91 (65-110) mg/dL Calcium 8.5 (8.4-10.2) mg/dL Total Bilirubin 0.3 (0.2-1.3) mg/dL AST 47 (17-59) U/L ALT 80 H (6-50) U/L Alkaline Phosphatase 71 (38-126) U/L Total Protein 7.0 (6.3-8.2) g/dL Albumin 4.3 (3.5-5.1) g/dL Lipase 74 (23-300) U/L Urine Color Yellow (Yellow) Urine Appearance Clear (Clear) Urine pH 6.0 (5.0-9.0) Ur Specific [place] 1.026 (1.001-1.035) Urine Protein 2+ H (Negative) mg/dL Urine Glucose (UA) Negative (Negative) mg/dL Urine Ketones Trace H (Negative) mg/dL Ur Blood (Man) Negative (Negative) Urine Nitrate Negative (Negative) Urine Bilirubin Negative (Negative) Urine Urobilinogen 1.0 (<2.0) mg/dL Leukocyte Esterase Rfl Negative (Negative) VELMA/UL Urine RBC 0-2 (0-2) /hpf Urine WBC 0-5 (0-3) /hpf Ur Squamous Epith Cells None seen (Few) /hpf Urine Bacteria None seen /hpf Urine Casts 0-2 Discharge Plan Discharge Clinical Impression: Abdominal pain, Gastritis Patient Disposition: Home Condition: Stable Instructions: Antibiotic Form, Gastritis (ED), Abdominal Pain (ED) Patient Language: Fijian Prescriptions: New pantoprazole [Protonix] 40 mg tablet,delayed release (DR/EC) 40 mg PO HS 28 Days Qty: 28 0RF ondansetron 4 mg tablet,disintegrating 4 mg PO Q8H PRN (Reason: nausea and vomiting) Qty: 10 0RF dicyclomine 20 mg tablet 20 mg PO QID PRN (Reason: abdominal discomfort) Qty: 20 0RF No Action ondansetron 4 mg tablet,disintegrating 4 mg PO Q6-8H PRN (Reason: nausea and vomiting) Qty: 7 0RF pantoprazole 40 mg tablet,delayed release (DR/EC) 40 mg PO HS 14 Days Qty: 14 0RF Xarelto DVT-PE Treat 30d Start 15 mg (42)- 20 mg (9) tablets,dose pack See Rx Instructions .ROUTE .COMPLEX Qty: 51 0RF Rx Instructions: take one-15 mg tablet twice daily for 21 days, then one-20 mg tablet once daily; must take with meal/food Follow-up/Referrals: Henrik Newsome MD [Physician] - UNKNOWN,DOCTOR [Primary Care Provider] - Time of Disposition: 14:35
[2025-03-07 14:44] VITALS: BP 155/88; PULSE 89; RESP 16; O2SAT 99
== END 2025-03-07 14:46 | disposition home or self-care (01) ==
PROVIDERS: Emergency Provider Emergency Medicine
DX: K29.70 Gastritis, unspecified, without bleeding (principal); N28.9 Disorder of kidney and ureter, unspecified; Q53.10 Unspecified undescended testicle, unilateral; Z79.01 Long term (current) use of anticoagulants; Z79.899 Other long term (current) drug therapy; K76.0 Fatty (change of) liver, not elsewhere classified
CPT/HCPCS: 36415; 74177; 76870; 80053; 81001; 83690; 85025; 93976; 96361; 96374; 96375; 99283; 99284; J2405; J2470; J7030; Q9967

== ENCOUNTER 2025-09-19 10:10 | Outpatient (CLI) | payer OTHER, SELFPAY ==
--- NOTE | ~2025-09-19 | CT_ITS ---
CTA CHEST CLINICAL HISTORY: Personal history of other venous thrombosis and... . COMPARISON: None TECHNIQUE: Helical CTA performed from thoracic inlet to upper abdomen 200 mL Omnipaque 350 It appears 2 scans with 2 separate injections occurred Coronal, sagittal reformats. Multiplanar MIPS CT images acquired with automatic exposure control for dose reduction DLP: 731 mGy-cm FINDINGS: Respiratory motion artifact could obscure distal PE. Pulmonary arteries: No PE identified. Thoracic Aorta: No dissection or aneurysm. Heart/pericardium: Unremarkable. RV/LV ratio: Normal. Lungs/Pleura: Clear. Tracheobronchial tree: Patent. Nodes: No enlarged nodes. Bones: No acute bony abnormality. Soft tissues: Gynecomastia. Visualized upper abdomen: Hepatomegaly, with steatosis. Splenomegaly. Small hiatal hernia IMPRESSION: 1. No PE or other acute cardiopulmonary findings. Reviewed, dictated and finalized at location R.
--- NOTE | ~2025-09-19 | US_ITS ---
EXAMINATION: US venous doppler LE RT, 09/19/2025 10:17 CDT HISTORY: Z86.718 - Personal history of other venous thrombosis and... Comparison: None Technique: Ha-scale and color Doppler images were attempted of the lower saphenofemoral junction, common femoral vein,superficial femoral vein, proximal deep femoral vein, proximal deep femoral vein, popliteal vein and posterior tibial veins. Findings: Deep Venous System:Normal flow, augmentation and compressibility. No echogenic thrombus identified. The contralateral saphenofemoral junction appears unremarkable. Superficial Venous SystemNo superficial thrombophlebitis. Soft tissues: Soft tissues are unremarkable. Impression: Negative for DVT. Reviewed, dictated and finalized at location P. Impression: Negative for DVT.
[2025-09-19 11:04] LABS: Estimated Glomerular Filt Rate > 60
== END 2025-09-19 10:11 | disposition home or self-care (01) ==
LOC: MICIMG 10:11
PROVIDERS: PCP Family Medicine; Visit Provider Family Medicine
DX: Z86.718 Personal history of other venous thrombosis and embolism (principal)
CPT/HCPCS: 71275; 93971; Q9967